=== PATIENT | female | born 1955 | race Hispanic/Latino ===

== ENCOUNTER 2017-04-29 16:07 | Inpatient (IN) | payer OTHER ==
[~2017-04-29] VITALS: Ht 137.2 cm; Wt 74.8 kg
[~2017-04-29 16:07] MED LIST: ALPRAZOLAM1 MG PO; ASPIRIN EC81 M1 PO; ATORVASTATIN CA40 MG PO; AUGMENTIN 875 M1 TAB PO; BENZTROPINE1 MG PO; CIPRO 500MG TA500 MG PO; CLONIDINE0.2 MG; DIVALPROEX SOD500 MG; IBUPROFEN600 MG PO; LISINOPRIL10 MG PO; LISINOPRIL20 MG PO; MEDROL DOSEPAK1 PAC PO; MEDROL4 M2 PO; MOTRIN800 MG PO; PROTONIX 40MG T40 MG PO; PYRIDIUM200 MG PO; SEROQUEL XR200 M1 PO; SINGULAIR10 MG PO; TESSALON PERLE100 M1 PO; VENLAFAXINE HY150 MG; VENTOLIN HFA18 GM INH; ZITHROMAX250 M2 PO; ZOFRAN4 M1 PO
[2017-04-29 16:39] LABS: ABSOLUTE BASOPHIL COUNT 0 /CUMM (0.0-0.2); ABSOLUTE EOSINOPHIL COUNT 0.1 /CUMM (0.0-0.7); ABSOLUTE GRANULOCYTE CT 22.9 /CUMM (1.4-6.5); ABSOLUTE LYMPH COUNT 0.7 /CUMM (1.2-3.4); ABSOLUTE MONOCYTE COUNT 0.9 /CUMM (0.10-0.60); BASOPHIL % 0 % (0.0-2.0); EOSINOPHIL % 0.6 % (0-5); GRANULOCYTE % 92.9 % (42.2-75.2); HEMATOCRIT 32.2 % (37-47); MEAN CORPUSCULAR HGB 30.5 PG (27.0-31.0); MEAN CORPUSCULAR HGB CONC 33.9 G/DL (33.0-37.0); MEAN CORPUSCULAR VOLUME 90.2 FL (81.0-99.0); MEAN PLATELET VOLUME 9.1 FL (7.4-10.4); PLATELET COUNT 189 /CUMM (130-400); RBC DISTRIBUTION WIDTH 13.3 % (11.5-14.5); RED BLOOD CELL CT 3.57 /CUMM (4.20-5.40); WHITE BLOOD CELL COUNT 24.6 /CUMM (4.8-10.8)
--- NOTE | 2017-04-29 16:43 | ED GI/GU/ABDOMINAL COMPLAINT ---
History of Present Illness General Chief Complaint: Female Urogenital Problems Stated Complaint: ?UTI, FEVER,PAIN WITH URINATION Source: patient Exam Limitations: no limitations Vital Signs & Intake/Output Vital Signs & Intake/Output Vital Signs Date Time Temp Pulse Resp B/P B/P Pulse O2 O2 Flow FiO2 Mean Ox Delivery Rate 04/29 2340 99.5 120 20 112/66 95 04/29 2237 99.8 112 18 130/80 96 04/29 2051 99.1 122 16 124/58 100 Room Air 04/29 1931 101.9 126 20 141/80 100 Room Air 04/29 1803 105 16 155/75 100 Room Air 04/29 1625 99.2 128 20 123/78 98 Room Air Room Air ED Intake and Output 04/30 0000 04/29 1200 Intake Total 2000 Output Total Balance 1999 Intake, IV 1999 Intake, Oral 0 Patient 160 lb Weight Allergies Coded Allergies: codeine (NIGHTMARES 05/10/15) oxycodone (VOMITING 05/10/15) Triage Note: PT TO ED WITH C/O HEADACHE, FEVER, FLANK AND LOW ABD PAIN, DECREASED APPETITE. PT EVAL BY DR ROBERTS IN TRIAGE, FLU SWAB, BLOODWORK SENT FROM TRIAGE. PT AMBLATORY TO BATHROOM FOR URINE SPECIMEN. Triage Nurses Notes Reviewed? yes ? n Is pt currently ? No Onset: Gradual Duration: day(s): Timing: recent history HPI: 62yo female with hx of HTN, UTIs presents to ED complaining of fever, chills, headache, bilateral flank pain x 5 days. Patient also reports urinary frequency and urgency, she states that she is using the bathroom every few minutes however only a small amount of urine comes out. This morning patient ate a sandwhich and had subsequent diarrhea x 3 episodes. Patient reports bilateral lower abdominal pain beginning this morning. The patient complains of intermittent dizziness. She denies nausea, vomiting, fevers, chills, skin rash, recent travel, change in diet. (Rica SANTIZO,Melany Booker) Reconcile Medications Albuterol Sulfate (Ventolin Hfa) 18 GM HFA.AER.AD 2 PUF INH Q4-6 PRN PRN SOB Aspirin (Ecotrin*) 81 MG TABLET. 1 TAB PO DAILY HEART HEALTH (Reported) Atorvastatin Calcium 20 MG TABLET 1 TAB PO DAILY CHOLESTEROL (Reported) Butalb/Acetaminophen/Caffeine (Whtdah-Cvpjlvns-Gnhe 50-300-40) 50 MG-300 MG-40 MG CAPSULE 1 TAB PO Q6H PRN VILLAREAL (Reported) Cholecalciferol (Vitamin D3) (Vitamin D) 2,000 UNIT TABLET 1 TAB PO DAILY SUPPLEMENT (Reported) Hydroxyzine HCl (hydrOXYzine HCl) 50 MG TABLET 0.5 TAB PO BID ANXIETY ( Reported) Lisinopril 10 MG TABLET 1 TAB PO DAILY BP (Reported) Metformin HCl 500 MG TABLET 1 TAB PO DAILY DM (Reported) Pantoprazole Sodium 40 MG TABLET.DR 1 TAB PO DAILY GI (Reported) Quetiapine Fumarate 100 MG TABLET 0.5-1 TAB PO QHS MENTAL HEALTH (Reported) Venlafaxine HCl (Venlafaxine HCl ER) 75 MG CAP.ER.24H 1 CAP PO DAILY MENTAL HEALTH (Reported) (Royce GASTON,Jaiden Tang) Past History Travel History Traveled to [place] past [place] No Medical History Any Pertinent Medical History? see below for history EENT: hearing loss Cardiovascular: hypertension, hyperlipidemia Respiratory: asthma Psychiatric: anxiety, depression Other Medical Hx: Urinary tract infections Surgical History Surgical History: SINUS SURGERY Psychosocial History What is your primary language Hungarian Tobacco Use: Never used ETOH Use: denies use Illicit Drug Use: denies illicit drug use Family History Hx Contributory? No (Melany Tellez) Review of Systems Review of Systems Constitutional: Reports: see HPI. EENTM: Reports: no symptoms. Respiratory: Reports: no symptoms. Cardiovascular: Reports: no symptoms. GI: Reports: see HPI. Genitourinary: Reports: see HPI. Musculoskeletal: Reports: no symptoms. Skin: Reports: no symptoms. Neurological/Psychological: Reports: see HPI. Hematologic/Endocrine: Reports: no symptoms. Immunologic/Allergic: Reports: no symptoms. All Other Systems: Reviewed and Negative (Melany Tellez) Physical Exam Physical Exam General Appearance: well developed/nourished, no apparent distress, alert, awake Head: atraumatic, normal appearance Eyes: Bilateral: normal appearance. Ears, Nose, Throat, Mouth: dry mucous membranes, hard of hearing, pharynx WNL Neck: normal inspection, supple, full range of motion Respiratory: normal breath sounds, no respiratory distress, lungs clear Cardiovascular: tachycardia Gastrointestinal: normal bowel sounds, soft, no organomegaly, RLQ, LLQ, suprapubic tenderness Back: CVA tenderness (R), CVA tenderness (L) Extremities: normal range of motion Neurologic/Psych: awake, alert, oriented x 3, stripper and taper II-XII nml as tested Skin: intact, normal color, warm/dry Core Measures ACS in differential dx? No Sepsis Present: No Sepsis Focused Exam Completed? No (Rica SANTIZO,Melany Booker) ED Sepsis Exam Date of Focused Sepsis Exam: 04/29/17 Time of Focused Sepsis Exam: 2100 Sepsis Cardiac Exam: Tachycardia Sepsis Resp Exam: CTA Sepsis Cap Refill Exam: <2 Sec Sepsis Peripheral Pulse Exam: Normal Sepsis Peripheral Pulse Location: Radial Sepsis Skin Color Exam: Normal for Ethnicity Skin Temp/Moisture Exam: Warm/Dry (Rica SANTIZO,Melany Booker) Progress Differential Diagnosis: kidney stone, UTI/pyelo Plan of Care: Orders Procedure Date/time Status Nothing by Mouth 04/30 B Active CBC WITHOUT DIFFERENTIAL 04/30 0600 Active BASIC ELECTROLYTES PLUS BUN&CR 04/30 0600 Active Vital Signs 04/30 0003 Active Teach/Educate 04/30 0003 Active Pain Treatment and Response 04/30 0003 Active Nutritional Intake, Monitor 04/30 0003 Active Isolation 04/30 0003 Active Intake & Output 04/30 0003 Active Patient Care Conference 04/30 0003 Active Activity/Ambulation 04/30 0003 Active Lab Add-on Test 04/30 UNK Active Lab Add-on Test 04/29 221 Active Pathway - chart 04/29 2206 Active House Staff 04/29 220 Active Patient Data 04/29 2148 Active Lab Add-on Test 04/29 2138 Active Add-on Test (ER Only) 04/29 2033 Active EKG 04/29 203 Active Saline Lock 04/29 2018 Active Misc Message 04/29 2018 Active ED Holding Orders 04/29 2018 Active Admit to inpatient 04/29 2018 Active Vital Signs 04/29 2019 Active Code Status 04/29 2019 Active Add-on Test (ER Only) 04/29 1726 Active Add-on Test (ER Only) 04/29 1725 Active BLOOD CULTURE 04/29 1725 Active CULTURE,URINE 04/29 1640 Active URINE OSMOLALITY 04/29 1640 Complete URINE LYTES, SPOT 04/29 1640 Complete PARTIAL THROMBOPLASTIN TIME 04/29 1631 Complete PROTHROMBIN TIME 04/29 1631 Complete MAGNESIUM 04/29 1631 Active LACTIC ACID 04/29 1631 Active GLYCOSYLATED HGB 04/29 1631 Active RAPID VIRAL INFLUENZA A 04/29 162 Complete COMPREHENSIVE METABOLIC PANEL 04/29 162 Active CBC WITHOUT DIFFERENTIAL 04/29 1624 Complete URINALYSIS 04/29 161 Complete VTE Mechanical Prophylaxis 04/29 UNK Active Intake & Output 04/29 UNK Active FingerStick- Glucose 04/29 UNK Active Current Medications Sig/Eric Start time Last Medication Dose Stop Time Status Admin Heparin Sodium 5,000 UNIT Q8 04/30 2200 AC (Porcine) Ceftriaxone Sodium 1,000 MG DAILY 04/30 1000 AC (Rocephin) Acetaminophen 650 MG Q6P PRN 04/29 221 AC (Tylenol) Acetaminophen 1,000 MG Q6P PRN 04/29 221 AC 04/29 (Ofirmev) 2351 Morphine Sulfate 2 MG Q4P PRN 04/29 2214 AC (Morphine) Pantoprazole Sodium 40 MG DAILY 04/29 2214 AC 04/29 (Protonix) 2336 Sodium Chloride 1,000 ML Q8H 04/29 2144 AC 04/29 (Normal Saline 0.9%) 04/30 1344 2148 Laboratory Tests 04/29/17 1640: Urinalysis LIGHT H, Urine Color YEL, Urine Clarity HAZY H, Urine pH 6.0, Ur Specific [place] 1.020, Urine Protein 100 H, Urine Ketones NEG, Urine Nitrite POS H, Urine Bilirubin NEG, Urine Urobilinogen 2.0 H, Ur Leukocyte Esterase LARGE H, Ur Microscopic SEDIMENT EXAMINED, Urine RBC 10-15 H, Urine WBC > 75 H, Ur Epithelial Cells FEW, Urine Bacteria MANY H, Urine Hemoglobin SMALL H, Urine Glucose NEG 04/29/17 1640: Urine Osmolality 414, Ur Random Creatinine 112.4, Ur Random Sodium 58, Ur Random Potassium 40.8, Fraction Sodium Excret 0.6 04/29/17 1631: Anion Gap 12, Estimated GFR 35 L, BUN/Creatinine Ratio 15.3, Glucose 231 H, Hemoglobin A1c Pending, Lactic Acid 1.4, Calcium 9.1, Magnesium 2.0, Total Bilirubin 0.8, AST 16, ALT 26, Alkaline Phosphatase 136 H, Total Protein 6.1 L , Albumin 3.1 L, Globulin 3.0, Albumin/Globulin Ratio 1.0 L, PT 12.8 H, INR 1.22 H, APTT 31, CBC w Diff MAN DIFF ORDERED, RBC 3.57 L, MCV 90.2, MCH 30.5, MCHC 33.9, RDW 13.3, MPV 9.1, Gran % 92.9 H, Lymphocytes % 2.7 L, Monocytes % 3.8, Eosinophils % 0.6, Basophils % 0, Absolute Granulocytes 22.9 H, Segmented Neutrophils 82 H, Band Neutrophils 9 H, Absolute Lymphocytes 0.7 L, Lymphocytes 4 L, Monocytes 2, Absolute Monocytes 0.9 H, Eosinophils 3, Absolute Eosinophils 0.1, Absolute Basophils 0, Platelet Estimate ADEQUATE, Normocytic RBCs VERIFIED, Normochromic RBCs VERIFIED Microbiology 04/29 1749 BLOOD: Blood Culture - RECD 04/29 1713 BLOOD: Blood Culture - RECD 04/29 1640 URINE ROUT: Urine Culture - RECD 04/29 1629 NASOPHARYN: Influenza Virus A & B Rapid Smear - COMP Patient has CVA tenderness with positive UTI, likely pyelonephritis. Patient also with acute kidney injury compared to prior labs. Will initiate ceftriaxone at this time with pending CT. Given patient's abdominal tenderness will obtain dry CT scan. CT scan shows hydronephrosis with 3 mm stone in bladder. Patient with elevated fever and persistent tachycardia meeting SIRS criteria. Dr. Crane present to see and evaluate the patient. Dr. Crane spoke with Dr. Sibley regarding this patient. He will take patient to our [facility] for local correction of urologic obstruction. I discussed this patient with hospitalist, Dr. Hyman, regarding her general medicine admission. Diagnostic Imaging: Viewed by Me: CT Scan. Discussed w/RAD: CT Scan. Radiology Impression: PATIENT: KALANI VEGAS PRESENT AGE: 62 PATIENT ACCOUNT NO: [id number] : 56 LOCATION: [facility] ORDERING PHYSICIAN: Melany SANTIZO SERVICE DATE: 04/29/17 EXAM TYPE: CAT - CT ABD & PELVIS W/O IV CONTRAS EXAMINATION: CT ABDOMEN AND PELVIS WITHOUT CONTRAST CLINICAL INFORMATION: R/O PYELONEPHRITIS, STONE, URINARY OBSTRUCTION Signs Symptoms: UTI, COMPARISON: CT abdomen pelvis 12/13/2013 TECHNIQUE: Multidetector volumetric imaging was performed from the superior aspect of the liver through the pubic symphysis. Sagittal and coronal reformatted images were obtained on the technologist's workstation. DLP: 358.92 mGy-cm FINDINGS: LUNG BASES: The visualized lung bases are unremarkable. LIVER, GALLBLADDER, AND BILIARY TREE: The liver is normal in size, shape, and attenuation. No focal hepatic lesion or biliary ductal dilatation is present. The gallbladder is unremarkable with no evidence of radiopaque gallstones, gallbladder wall thickening, or obvious pericholecystic inflammatory changes. PANCREAS: Unremarkable. SPLEEN: Unremarkable. ADRENAL GLANDS: Unremarkable. BLADDER/ KIDNEYS AND URETERS: There is moderate hydronephrosis of the left kidney. Dilatation of the left renal pelvis and calyces. There is hydroureter to the left ureterovesical junction. There is a 3 mm stone at the left bladder base adjacent to the trigone which is passing or has recently passed into the bladder. There is edema around the left kidney in the left kidney is larger than the right due to swelling. There is a nonobstructive 2 mm stone in the lower pole calyx of left kidney. No hydronephrosis of the right kidney. There are nonobstructive calculi in the right kidney. There are approximately 3 ,1 to 2 mm sized, stones in the lower pole to the midpole of the right kidney GASTROINTESTINAL TRACT: There is mild diverticulosis of left colon and sigmoid without diverticulitis. There is no acute abnormality of the bowel. No bowel obstruction. No bowel wall thickening or edema. The appendix is normal. The small bowel loops are unremarkable. ABDOMINAL WALL: Small fat-containing umbilical hernia. LYMPH NODES: Normal. VASCULAR: Scattered vascular wall calcification of aorta and iliac arteries. PELVIC VISCERA: The uterus is retroverted. There are multiple calcified fibroids. Largest posterior left measuring 2 cm. There is no adnexal abnormality. There is no fluid in the cul-de -sac. OSSEOUS STRUCTURES: Degenerative spondylosis of spine with multilevel endplate spurring of the vertebrae. Facet joint arthrosis at lower lumbar spine. IMPRESSION: Hydronephrosis of the left kidney with edema and swelling of the kidney. There is a 3 mm stone at the left bladder trigone which is passing or has passed into the bladder. There are in additional nonobstructive bilateral renal stones. DICTATED BY: Sherwin Oliver MD DATE/TIME DICTATED:04/29/171840 LUMBER DRIVER:CHARLIE DATE/TIME TRANSCRIBED:04/29/171840 CONFIDENTIAL, DO NOT COPY WITHOUT APPROPRIATE AUTHORIZATION. <Electronically signed in Other Vendor System> SIGNED BY: Sherwin Oliver MD 04/29/171850 Initial ED EKG: none (Rica SANTIZO,Melany Booker) Departure Departure Disposition: STILL A PATIENT Condition: Stable Clinical Impression Primary Impression: Sepsis Secondary Impressions: YOEL (acute kidney injury) Hydronephrosis Qualifiers: Hydronephrosis type: other Qualified Code: N13.39 - Other hydronephrosis Pyelonephritis Referrals: Lidya Maldonado APRN (PCP/Family) Departure Forms: Customer Survey General Discharge Information Admission Note Spoke With: Nader GASTON,[facility] Documentation of Exam: Documentation of any treatments & extenuating circumstances including Concerns Regarding Discharge (functional status, medication knowledge or non-compliance, living conditions, etc.) that warrant an admission rather than observation: [ Obstructing stone causing hydronephrosis and pyelonephritis, YOEL, meeting SIRS criteria requiring emergent urologic procedure, IV antibiotics, IV fluids, repeat labs, f/u blood cultures, premature discharge would be medically unsafe.] (Melany Tellez) PA/PLAYGROUND EQUIPMENT ERECTOR Co-Sign Statement Statement: ED Attending supervision documentation- [X] I saw and evaluated the patient. I have also reviewed all the pertinent lab results and diagnostic results. I agree with the findings and the plan of care as documented in the PA's/PLAYGROUND EQUIPMENT ERECTOR's documentation. 04/29/17, 19:45... pt with sepsis, infected stone w/ hydrdonephrosis... pt will need urological evaluation, iv abx, iv fluids. 04/29/17, 20:15... discussed with dr. sibley who will take patient to the OR [] I have reviewed the ED Record and agree with the PA's/PLAYGROUND EQUIPMENT ERECTOR's documentation. [] Additions or exceptions (if any) to the PAs/PLAYGROUND EQUIPMENT ERECTOR's note and plan are summarized below: [] (Royce GASTON,Jaiden Tang) Critical Care Note Critical Care Note Critical Care Time: 30-74 min (Melany Tellez)
--- NOTE | 2017-04-29 18:51 | CT SCAN REPORT ---
EXAMINATION: CT ABDOMEN AND PELVIS WITHOUT CONTRAST CLINICAL INFORMATION: R/O PYELONEPHRITIS, STONE, URINARY OBSTRUCTION Signs Symptoms: UTI, COMPARISON: CT abdomen pelvis 12/13/2013 TECHNIQUE: Multidetector volumetric imaging was performed from the superior aspect of the liver through the pubic symphysis. Sagittal and coronal reformatted images were obtained on the technologist's workstation. DLP: 358.92 mGy-cm FINDINGS: LUNG BASES: The visualized lung bases are unremarkable. LIVER, GALLBLADDER, AND BILIARY TREE: The liver is normal in size, shape, and attenuation. No focal hepatic lesion or biliary ductal dilatation is present. The gallbladder is unremarkable with no evidence of radiopaque gallstones, gallbladder wall thickening, or obvious pericholecystic inflammatory changes. PANCREAS: Unremarkable. SPLEEN: Unremarkable. ADRENAL GLANDS: Unremarkable. BLADDER/KIDNEYS AND URETERS: There is moderate hydronephrosis of the left kidney. Dilatation of the left renal pelvis and calyces. There is hydroureter to the left ureterovesical junction. There is a 3 mm stone at the left bladder base adjacent to the trigone which is passing or has recently passed into the bladder. There is edema around the left kidney in the left kidney is larger than the right due to swelling. There is a nonobstructive 2 mm stone in the lower pole calyx of left kidney. No hydronephrosis of the right kidney. There are nonobstructive calculi in the right kidney. There are approximately 3 ,1 to 2 mm sized, stones in the lower pole to the midpole of the right kidney GASTROINTESTINAL TRACT: There is mild diverticulosis of left colon and sigmoid without diverticulitis. There is no acute abnormality of the bowel. No bowel obstruction. No bowel wall thickening or edema. The appendix is normal. The small bowel loops are unremarkable. ABDOMINAL WALL: Small fat-containing umbilical hernia. LYMPH NODES: Normal. VASCULAR: Scattered vascular wall calcification of aorta and iliac arteries. PELVIC VISCERA: The uterus is retroverted. There are multiple calcified fibroids. Largest posterior left measuring 2 cm. There is no adnexal abnormality. There is no fluid in the cul-de-sac. OSSEOUS STRUCTURES: Degenerative spondylosis of spine with multilevel endplate spurring of the vertebrae. Facet joint arthrosis at lower lumbar spine. IMPRESSION: Hydronephrosis of the left kidney with edema and swelling of the kidney. There is a 3 mm stone at the left bladder trigone which is passing or has passed into the bladder. There are in additional nonobstructive bilateral renal stones.
--- NOTE | 2017-04-29 20:31 | History & Physical ---
Ambar Nina MD,[facility] 04/29/172030: General Information and HPI MD Statement: I have seen and personally examined KALANI VEGAS and documented this H&P. The patient is a 62 year old F who presented with a patient stated chief complaint of [fever and abdominal pain]. Source of Information: patient, family Exam Limitations: Macanese speaking, limited slovak proficency History of Present Illness: Patient is 62-year-old female with PMH of HTN, HLP, asthma, anxiety, depression, ?use of CPAP at nights presented to ED with chief complaint of fever and pain with urination. Patient is Macanese-speaking, had limited Italian proficiency but family were present at the bedside and were contributing in history taking. Briefly patient was in usual state of health till Tuesday this week, that she started to have abdominal/flank pain, frequency. She also reported loose stools. She also had fever and chills. With detoriation of symptoms patient came to ED for evaluation. She was trying to maintain drinking fluids, but could not eat due to nausea and vomiting. She denied history of kidney stones or frequent UTIs. Patient reported smoking 1PPD but denied alcohol intake. Allergies/Medications Allergies: Coded Allergies: codeine (NIGHTMARES 05/10/15) oxycodone (VOMITING 05/10/15) Home Med list Albuterol Sulfate (Ventolin Hfa) 18 GM HFA.AER.AD 2 PUF INH Q4-6 PRN PRN SOB Aspirin (Ecotrin*) 81 MG TABLET.DR 1 TAB PO DAILY HEART HEALTH (Reported) Atorvastatin Calcium 20 MG TABLET 1 TAB PO DAILY CHOLESTEROL (Reported) Butalb/Acetaminophen/Caffeine (Ihfclm-Lzueeweh-Ffjh 50-300-40) 50 MG-300 MG-40 MG CAPSULE 1 TAB PO Q6H PRN VILLAREAL (Reported) Cholecalciferol (Vitamin D3) (Vitamin D) 2,000 UNIT TABLET 1 TAB PO DAILY SUPPLEMENT (Reported) Hydroxyzine HCl (hydrOXYzine HCl) 50 MG TABLET 0.5 TAB PO BID ANXIETY ( Reported) Lisinopril 10 MG TABLET 1 TAB PO DAILY BP (Reported) Metformin HCl 500 MG TABLET 1 TAB PO DAILY DM (Reported) Pantoprazole Sodium 40 MG TABLET.DR 1 TAB PO DAILY GI (Reported) Quetiapine Fumarate 100 MG TABLET 0.5-1 TAB PO QHS MENTAL HEALTH (Reported) Venlafaxine HCl (Venlafaxine HCl ER) 75 MG CAP.ER.24H 1 CAP PO DAILY MENTAL HEALTH (Reported) Past History Travel History Traveled to [place] past [place] No Medical History EENT: hearing loss Cardiovascular: hypertension, hyperlipidemia Respiratory: asthma Psychiatric: anxiety, depression Other Medical Hx: Urinary tract infections Surgical History Surgical History: SINUS SURGERY Past Family/Social History Psychosocial History ETOH Use: denies use Illicit Drug Use: denies illicit drug use Review of Systems Review of Systems Constitutional: Reports: see HPI. Exam & Diagnostic Data Last 24 Hrs of Vital Signs/I&O Vital Signs Date Time Temp Pulse Resp B/P B/P Pulse O2 O2 Flow FiO2 Mean Ox Delivery Rate 04/29 2236 99.8 112 18 130/80 96 04/29 2050 99.1 122 16 124/58 100 Room Air 04/29 1931 101.9 126 20 141/80 100 Room Air 04/29 1803 105 16 155/75 100 Room Air 04/29 1625 99.2 128 20 123/78 98 Room Air Room Air Physical Exam General Appearance Alert, Oriented X3, Cooperative, No Acute Distress, anxious Skin No Significant Lesion Skin Temp/Moisture Exam: Hot/Diaphoretic HEENT Atraumatic, EOMI, Mucous Membr. moist/pink Cardiovascular Regular Rate, Normal S1, Normal S2 Lungs Normal Air Movement Abdomen suprapubic tenderness, left CVA tenderness Neurological Normal Speech, Strength at 5/5 X4 Ext, Cranial Nerves 3-12 NL Extremities No Edema Last 24 Hrs of Labs/Vladislav: Laboratory Tests 04/29/17 1640: Urinalysis LIGHT H, Urine Color YEL, Urine Clarity HAZY H, Urine pH 6.0, Ur Specific [place] 1.020, Urine Protein 100 H, Urine Ketones NEG, Urine Nitrite POS H, Urine Bilirubin NEG, Urine Urobilinogen 2.0 H, Ur Leukocyte Esterase LARGE H, Ur Microscopic SEDIMENT EXAMINED, Urine RBC 10-15 H, Urine WBC > 75 H, Ur Epithelial Cells FEW, Urine Bacteria MANY H, Urine Hemoglobin SMALL H, Urine Glucose NEG 04/29/17 1631: Anion Gap 12, Estimated GFR 35 L, BUN/Creatinine Ratio 15.3, Glucose 231 H, Hemoglobin A1c Pending, Lactic Acid 1.4, Calcium 9.1, Magnesium 2.0, Total Bilirubin 0.8, AST 16, ALT 26, Alkaline Phosphatase 136 H, Total Protein 6.1 L , Albumin 3.1 L, Globulin 3.0, Albumin/Globulin Ratio 1.0 L, PT 12.8 H, INR 1.22 H, APTT 31, CBC w Diff MAN DIFF ORDERED, RBC 3.57 L, MCV 90.2, MCH 30.5, MCHC 33.9, RDW 13.3, MPV 9.1, Gran % 92.9 H, Lymphocytes % 2.7 L, Monocytes % 3.8, Eosinophils % 0.6, Basophils % 0, Absolute Granulocytes 22.9 H, Segmented Neutrophils 82 H, Band Neutrophils 9 H, Absolute Lymphocytes 0.7 L, Lymphocytes 4 L, Monocytes 2, Absolute Monocytes 0.9 H, Eosinophils 3, Absolute Eosinophils 0.1, Absolute Basophils 0, Platelet Estimate ADEQUATE, Normocytic RBCs VERIFIED, Normochromic RBCs VERIFIED Microbiology 04/29 1749 BLOOD: Blood Culture - RECD 04/29 1713 BLOOD: Blood Culture - RECD 04/29 1640 URINE ROUT: Urine Culture - RECD 04/29 1629 NASOPHARYN: Influenza Virus A & B Rapid Smear - COMP Assessment/Plan Assessment: 62-year-old female presented with fever, frequency, dysuria and flank tenderness PMH of HTN, HLP, asthma, anxiety, depression, ?use of CPAP VS, Ph Ex at admission: MAXIMUM TEMPERATURE 101.9, BP 155/75, OR 105, RR 16 Labs at admission: WBC 24.6, Hgb 10.9, band 9, potassium 3.3, CR 1.5, BUN over creatinine 15.3 UA, Nit positive, WBC 75, LE positive Imagings at admission: CT scan of the abdomen: Hydronephrosis of the left kidney with edema and swelling of the kidney. There is a 3 mm stone at the left bladder trigone which is passing or has passed into the bladder. There are in additional nonobstructive bilateral renal stones. Patient was admitted to GM floor for management of following conditions: Sepsis UTI, perinephritis, hydronephrosis Patient meets sepsis criteria. UA is active and imaging suggesting obstructive nephropathy. Dr. Sibley was consulted who recommended no emergent intervention considering patient being stable. We will admit patient to general medicine floor, start antibiotics, and keep nothing by mouth for possible urology intervention tomorrow morning. -Admit to general medicine floor -Vital signs -Hold blood pressure medication -IV fluids - Start IV ceftriaxone -IV Zofran for vomiting -Keep nothing by mouth -Urology consulted, possible stent placement procedure tomorrow morning YOEL Most likely obstructive uropathy, BUN creatinine ratio was borderline, we will add urine lites, we will hold lisinopril - urine lytes - consider hold fluids if pattern suggestive of obstructive Hypokalemia - replete IV - may not tolerate PO, administered Chronic medical problems: ?CPAP, Asthma, HTN, smoking - continue CPAP - nicotin patch - hold BP meds, will follow - consider start asprin tomrrow after prcedure NPO midnight DVT ppx: ALPS FC As Ranked By This Provider Problem List: 1. YOEL (acute kidney injury) 2. Sepsis 3. Pyelonephritis 4. Hydronephrosis Qualifiers Hydronephrosis type: other Qualified Code: N13.39 - Other hydronephrosis Core Measures/Misc (11/21) Acute Coronary Syndrome ACS Diagnosis: No Congestive Heart Failure Congestive Heart Failure Diagnosis No Cerebrovascular Accident CVA/TIA Diagnosis: No VTE (View Protocol) VTE Risk Factors Age>40 No Mechanical VTE Prophylaxis d/t N/A MechProphylax Ordered No VTE Pharm Prophylaxis d/t Medical Contraindication (plan for surgery) Sepsis (View protocol) Sepsis Present: Yes Nader GASTON, [facility] 04/29/172117: Attending MD Review Statement Attending Statement Attending MD Statement: examined this patient, discuss w/resident/PA/BRAKE SPECIALIST, agreed w/resident/PA/BRAKE SPECIALIST, discussed with family, reviewed images, amended to note Attending Assessment/Plan: 62 yo Macanese speaking F smoker with h/o HTN, HLD, anxiety, is here with 5-day h /o fever, chills, bilateral flank pain (L>R), nausea and urinary frequency and urgency. Reportedly uses the bathroom frequently but only small amount of urine comes out. She also reports 2-3 episodes of diarrhea today. c/o headache and dizziness+. Denies h/o nephrolithiasis or urologic procedure or recurrent UTI's. Vitals: Tmax 101.9, HR 100-120's, BP 112/66, sats 95% RA. Exam: AAO, in mild distress due to pain, very dry mucous membranes, Neck supple, Bilateral CVA tenderness, Chest b/l clear, Heart S1S2 regular, tachycardic, Abd soft, b/l flank tenderness, BS+, LE: no edema. Labs: WBC 24.6, H/H 10.9/32.2, bands 9, INR 1.22, bicarb 20, BUN 23, creat 1.5 ( baseline 0.8), glucose 231, lactic acid 1.4, Alk phos 136. UA hazy, proteinuria, positive nitrite, large leukocyte esterase, RBC 10-15, WBC >75, many bacteria. CT abd/pelvis: hydronephrosis of left kidney with edema and swelling of kidney. 3 mm stone at left bladder trigone and additional nonobstructive b/l renal stones. EKG: sinus tachycardia. Assessment and plan: 1. Sepsis likely gram negative 2. UTI with acute pyelonephritis 3. Obstructive uropathy with left sided hydronephrosis 4. YOEL, hypokalemia 5. Essential hypertension 6. ?history of diabetes - Admit to general medicine - Panculture - Based on previous Ecoli UTI, cover with IV ceftriaxone - IV fluids NS @ 125/hr - Urology consult (Dr. Sibley) - NPO - Plan for OR in AM for stent placement - Pain management with IV morphine and tylenol - Avoid NSAIDs - Supportive care with anti-emetics. - Hold lisinopril until renal functions improve - Hold aspirin, can resume post procedure - Replete electrolytes - Smoking cessation counseling, PRN nicotine patch - Check HbA1c DVT ppx Hep SC. Full code. Plan was discussed with patient and family at bedside. Update: Micro informed patient's blood culture - 1st set anaerobic bottle is growing GNR. Grzegorz GASTON,Silvino 04/29/17 2214: Resident Review Statement Resident Statement: examined this patient, discussed with property management intern, agreed with property management intern, discussed with family, reviewed EMR data (avail), discussed with nursing , discussed with case mgmt, reviewed images, amended to note Other Findings: 62-year-old female with past medical history of hypertension, hyperlipidemia, asthma, anxiety, depression, presented with history of abdominal/back pain, fever/chills, nausea/vomiting, since 5 days. This was associated with urinary frequency and urgency, and a decreased urine output. She also admitted to having loose bowel movement 3 times today. Patient didn't know about past history of urinary tract stones and also denied any urologic procedures. Patient's vital parameters were suggestive of sepsis, and ... Patient is currently admitted in general medical floor for the management of following issues: #Sepsis of urologic origin The patient's clinical picture, including UA, imaging showing urinary tract obstruction due to stone (obstructive uropathy), is typical for sepsis of urologic origin, which would require relief of obstruction, most likely with the surgery. Urology service was consulted by the emergency department, who assessed the patient and suggested us to keep her nothing by mouth while watching her clinical condition very closely. If her condition seems to due to oriented, that is, blood pressure lowering, fever rising, she could be operated tonight as well, else she could be more stabilized as she looks right now, received more IV fluid, IV antibiotic and get the surgery at 8 AM tomorrow. I discussed the case with urologist Jorge Sibley MD who suggested me as above. We will be in close contact with the urologist while monitoring her very closely. IV fluids, IV ceftriaxone pending cultures, nothing by mouth for now. #Although patient denied any history of diabetes, she was prescribed metformin in the past, we will check her blood sugars and HbA1c, and will add insulin if necessary. Will continue to avoid nephrotoxic drugs, and hold lisinopril until renal functions improve. Holding BP meds till BP improves. Diet: Nothing by mouth for now DVT prophylaxis with subcutaneous heparin Full code. Diet: Nothing by mouth for now DVT prophylaxis with subcutaneous heparin Full code.
[2017-04-29] MEDS ORDERED: ATORVASTATIN CA20 M1 PO (20:32)
[2017-04-29] MEDS ORDERED: HYDROXYZINE HCL50 M2 PO (20:34)
[2017-04-29] MEDS ORDERED: BUTALB-ACETAMI1 EAC1 PO (20:34)
[2017-04-29] MEDS ORDERED: QUETIAPINE FUM100 M1 PO (20:35)
[2017-04-29] MEDS ORDERED: VENLAFAXINE HCL75 M1 PO (20:35)
[2017-04-29] MEDS ORDERED: LISINOPRIL10 M1 PO (20:36)
[2017-04-29] MEDS ORDERED: METFORMIN HCL500 M3 PO (20:36)
[2017-04-29] MEDS ORDERED: PANTOPRAZOLE SO40 M1 PO (20:36)
[2017-04-29] MEDS ORDERED: VITAMIN D2000 UNI1 PO (20:36)
--- NOTE | 2017-04-29 20:40 | Admission Certification ---
Admission Certification Certification Statement - As attending physician, I certify that at the time of - admission, based on clinical presentation, severity of - symptoms, need for further diagnostic testing and - therapeutic interventions, and risk of adverse outcomes - without in-hospital treatment, in my clinical assessment, - this patient requires an acute hospital stay for a minimum - of two nights or longer. I have also considered psychsocial - factors such as support system, advanced age, financial - issues, cognitive issues, and failed out-patient treatments, - past re-admission history, safety of patient, and lack of - compliance as applicable. Specific rationale supporting this admission is: Gram negative sepsis, acute pyelonephritis, obstructive uropathy, YOEL with metabolic acidosis.
[2017-04-29 21:00] LABS: PT 12.8 SEC (9.4-12.5); PTT 31 SEC (25-37)
[2017-04-29 23:40] VITALS: BP 112/66
--- NOTE | 2017-04-30 03:41 | Cons- Urology ---
General Information and HPI Consulting Request Date of Consult: 04/29/17 Requested By: Nader GASTON,Alvarado Reason for Consult: left hydro. with sepsis (elevated wbc) and pain Source of Information: patient Exam Limitations: no limitations History of Present Illness: Seen at bedside sleeping peacfully. Only complaint at this time is left IV irriation. Denies fever/chills/diaphoresis. Patient was in usual state of health till Tuesday this week, that she started to have abdominal/flank pain, frequency. She also reported loose stools. She also had fever and chills. With detoriation of symptoms patient came to ED for evaluation. She was trying to maintain drinking fluids, but could not eat due to nausea and vomiting. She denied history of kidney stones or frequent UTIs. Patient reported smoking 1PPD but denied alcohol intake. Informed pt of left hydronephrosis with sepsis with bilat. stones. I also told her that a small stone seems to have passed into the bladder and the hydronephrosis is a residual effect that should get better. I aslo told pt. of possibility of OR stent if she does not improve overnight. Allergies/Medications Allergies: Coded Allergies: codeine (NIGHTMARES 05/10/15) oxycodone (VOMITING 05/10/15) Home Med List: Albuterol Sulfate (Ventolin Hfa) 18 GM HFA.AER.AD 2 PUF INH Q4-6 PRN PRN SOB Aspirin (Ecotrin*) 81 MG TABLET.DR 1 TAB PO DAILY HEART HEALTH (Reported) Atorvastatin Calcium 20 MG TABLET 1 TAB PO DAILY CHOLESTEROL (Reported) Butalb/Acetaminophen/Caffeine (Rzjpyl-Atuispma-Tgzz 50-300-40) 50 MG-300 MG-40 MG CAPSULE 1 TAB PO Q6H PRN VILLAREAL (Reported) Cholecalciferol (Vitamin D3) (Vitamin D) 2,000 UNIT TABLET 1 TAB PO DAILY SUPPLEMENT (Reported) Hydroxyzine HCl (hydrOXYzine HCl) 50 MG TABLET 0.5 TAB PO BID ANXIETY ( Reported) Lisinopril 10 MG TABLET 1 TAB PO DAILY BP (Reported) Metformin HCl 500 MG TABLET 1 TAB PO DAILY DM (Reported) Pantoprazole Sodium 40 MG TABLET.DR 1 TAB PO DAILY GI (Reported) Quetiapine Fumarate 100 MG TABLET 0.5-1 TAB PO QHS MENTAL HEALTH (Reported) Venlafaxine HCl (Venlafaxine HCl ER) 75 MG CAP.ER.24H 1 CAP PO DAILY MENTAL HEALTH (Reported) Current Medications: Current Medications Sig/Eric Start time Last Medication Dose Route Stop Time Status Admin Acetaminophen 650 MG Q6P PRN 04/29 221 AC PO Acetaminophen 1,000 MG Q6P PRN 04/29 2215 AC 04/29 IV 2351 Acetaminophen 1,000 MG ONCE ONE 04/29 1944 DC 04/29 N/A 1 UNIT IV 04/29 Acetaminophen 0 .STK-MED ONE 04/29 194 DC IV Ceftriaxone Sodium 1,000 MG DAILY 04/30 1000 AC IV Ceftriaxone Sodium 0 .STK-MED ONE 04/29 181 DC .ROUTE Ceftriaxone Sodium 1,000 MG ONCE ONE 04/29 174 DC 04/29 IV 04/29 174 181 Heparin Sodium 5,000 UNIT Q8 04/30 220 AC (Porcine) SC Ketorolac 0 .STK-MED ONE 04/29 1809 DC Tromethamine .ROUTE Ketorolac 30 MG ONCE ONE 04/29 173 DC 04/29 Tromethamine IV 04/29 173 181 Morphine Sulfate 2 MG Q4P PRN 04/29 2214 AC IV Morphine Sulfate 4 MG ONCE ONE 04/29 1944 DC 04/29 IV 04/29 Morphine Sulfate 0 .STK-MED ONE 04/29 1942 DC .ROUTE Ondansetron HCl 0 .STK-MED ONE 04/29 1946 DC .ROUTE Ondansetron HCl 4 MG ONCE ONE 04/29 1944 DC 04/29 IV 04/29 Pantoprazole Sodium 40 MG DAILY 04/29 2214 AC 04/29 IV 2336 Potassium Chloride 10 MEQ Q1H 04/29 2330 DC 04/30 IV 04/30 0031 0241 Potassium Chloride 40 MEQ ONCE ONE 04/29 2214 DC 04/29 PO 04/29 2216 2336 Sodium Chloride 1,000 ML Q8H 04/29 2145 AC 04/29 IV 04/30 1344 2148 Sodium Chloride 1,000 ML BOLUS ONE 04/29 1999 DC 04/29 IV 04/29 2058 195 Sodium Chloride 1,000 ML BOLUS ONE 04/29 171 DC 04/29 IV 04/29 181 173 Past History Medical History Blood Transfusion Hx: No EENT: hearing loss Cardiovascular: hypertension, hyperlipidemia Respiratory: asthma Psychiatric: anxiety, depression Other Medical Hx: Urinary tract infections Surgical History Pertinent Surgical History: SINUS SURGERY Psychosocial History Where Do You Live? Home Services at Home: None Smoking Status: Current Everyday Smoker ETOH Use: denies use Illicit Drug Use: denies illicit drug use Employment History Retired? unknown Review of Systems Review of Systems Constitutional: Reports: malaise, weakness. EENTM: Denies: no symptoms. Cardiovascular: Denies: no symptoms. Respiratory: Denies: no symptoms. GI: Reports: abdominal pain, bloating. Genitourinary: Reports: frequency. Musculoskeletal: Denies: no symptoms. Skin: Denies: no symptoms. Exam & Diagnostic Data Vital Signs and I&O Vital Signs Date Time Temp Pulse Resp B/P B/P Pulse O2 O2 Flow FiO2 Mean Ox Delivery Rate 04/29 2340 99.5 120 20 112/66 95 04/29 2237 99.8 112 18 130/80 96 04/29 2051 99.1 122 16 124/58 100 Room Air 04/29 1931 101.9 126 20 141/80 100 Room Air 04/29 1803 105 16 155/75 100 Room Air 04/29 1625 99.2 128 20 123/78 98 Room Air Room Air Intake & Output 04/30 0804/30 0000 04/29 1600 04/29 0804/29 0000 04/28 1600 Intake Total 2000 Output Total Balance 2000 Intake, IV 2000 Intake, Oral 0 Patient 165 lb Weight Weight Reported by Patient Measurement Method Physical Exam General Appearance: well developed/nourished, no apparent distress Head: atraumatic Eyes: Bilateral: normal appearance. Neck: normal inspection Respiratory: normal breath sounds Cardiovascular: regular rate/rhythm Gastrointestinal: normal bowel sounds, soft, non-tender Back: CVA tenderness (L) Extremities: normal inspection Neurologic/Psych: no motor/sensory deficits, awake, alert, oriented x 3 Skin: intact, normal color, warm/dry Last 24 Hours of Labs: Laboratory Tests 04/29 04/29 1640 1640 Urines Urinalysis LIGHT H Urine Color (YEL,AMB,STR) YEL Urine Clarity (CLEAR) HAZY H Urine pH (5.0 - 8.0) 6.0 Ur Specific [place] (1.001 - 1.035) 1.020 Urine Protein (NEG,<30 MG/DL) 100 H Urine Ketones (NEG) NEG Urine Nitrite (NEG) POS H Urine Bilirubin (NEG) NEG Urine Urobilinogen (0.1 - 1.0 EU/dl) 2.0 H Ur Leukocyte Esterase (NEG) LARGE H Ur Microscopic SEDIMENT EXAMINED Urine RBC (0 - 5 /HPF) 10-15 H Urine WBC (0 - 2 /HPF) > 75 H Ur Epithelial Cells (NONE,FEW) FEW Urine Bacteria (NEG/NONE) MANY H Urine Hemoglobin (NEG) SMALL H Urine Osmolality (300 - 1000 MOSM/KG) 414 Ur Random Creatinine (mg/dL) 112.4 Ur Random Sodium (30 - 90 mmol/L) 58 Ur Random Potassium (mmol/L) 40.8 Fraction Sodium Excret (<1% %) 0.6 Urine Glucose (N MG/DL) NEG 04/29 1631 Chemistry Sodium (137 - 145 mmol/L) 140 Potassium (3.5 - 5.1 mmol/L) 3.3 L Chloride (98 - 107 mmol/L) 108 H Carbon Dioxide (22 - 30 mmol/L) 20 L Anion Gap (5 - 16) 12 BUN (7 - 17 mg/dL) 23 H Creatinine (0.5 - 1.0 mg/dL) 1.5 H Estimated GFR (>60 ml/min) 35 L BUN/Creatinine Ratio (7 - 25 %) 15.3 Glucose (65 - 99 mg/dL) 231 H Hemoglobin A1c (4.2 - 5.8 %) Pending Lactic Acid (0.7 - 2.1 mmol/L) 1.4 Calcium (8.4 - 10.2 mg/dL) 9.1 Magnesium (1.6 - 2.3 mg/dL) 2.0 Total Bilirubin (0.2 - 1.3 mg/dL) 0.8 AST (14 - 36 U/L) 16 ALT (9 - 52 U/L) 26 Alkaline Phosphatase (<127 U/L) 136 H Total Protein (6.3 - 8.2 g/dL) 6.1 L Albumin (3.5 - 5.0 g/dL) 3.1 L Globulin (1.9 - 4.2 gm/dL) 3.0 Albumin/Globulin Ratio (1.1 - 2.2 %) 1.0 L Coagulation PT (9.4 - 12.5 SEC) 12.8 H INR (0.90 - 1.19) 1.22 H APTT (25 - 37 SEC) 31 Hematology CBC w Diff MAN DIFF ORDERED WBC (4.8 - 10.8 /CUMM) 24.6 H RBC (4.20 - 5.40 /CUMM) 3.57 L Hgb (12.0 - 16.0 G/DL) 10.9 L Hct (37 - 47 %) 32.2 L MCV (81.0 - 99.0 FL) 90.2 MCH (27.0 - 31.0 PG) 30.5 MCHC (33.0 - 37.0 G/DL) 33.9 RDW (11.5 - 14.5 %) 13.3 Plt Count (130 - 400 /CUMM) 189 MPV (7.4 - 10.4 FL) 9.1 Gran % (42.2 - 75.2 %) 92.9 H Lymphocytes % (20.5 - 51.1 %) 2.7 L Monocytes % (1.7 - 9.3 %) 3.8 Eosinophils % (0 - 5 %) 0.6 Basophils % (0.0 - 2.0 %) 0 Absolute Granulocytes (1.4 - 6.5 /CUMM) 22.9 H Segmented Neutrophils (42.2 - 75.2 %) 82 H Band Neutrophils (0.0 - 5.0 %) 9 H Absolute Lymphocytes (1.2 - 3.4 /CUMM) 0.7 L Lymphocytes (20.5 - 51.1 %) 4 L Monocytes (1.7 - 9.3 %) 2 Absolute Monocytes (0.10 - 0.60 /CUMM) 0.9 H Eosinophils (0 - 5.0 %) 3 Absolute Eosinophils (0.0 - 0.7 /CUMM) 0.1 Absolute Basophils (0.0 - 0.2 /CUMM) 0 Platelet Estimate (ADEQUATE) ADEQUATE Normocytic RBCs VERIFIED Normochromic RBCs VERIFIED Imaging Results: PATIENT: KALANI VEGAS PRESENT AGE: 62 PATIENT ACCOUNT NO: [id number] : 56 LOCATION: [facility] ORDERING PHYSICIAN: Melany SANTIZO SERVICE DATE: 04/29/17 EXAM TYPE: CAT - CT ABD & PELVIS W/O IV CONTRAS EXAMINATION: CT ABDOMEN AND PELVIS WITHOUT CONTRAST CLINICAL INFORMATION: R/O PYELONEPHRITIS, STONE, URINARY OBSTRUCTION Signs Symptoms: UTI, COMPARISON: CT abdomen pelvis 12/13/2013 TECHNIQUE: Multidetector volumetric imaging was performed from the superior aspect of the liver through the pubic symphysis. Sagittal and coronal reformatted images were obtained on the technologist's workstation. DLP: 358.92 mGy-cm FINDINGS: LUNG BASES: The visualized lung bases are unremarkable. LIVER, GALLBLADDER, AND BILIARY TREE: The liver is normal in size, shape, and attenuation. No focal hepatic lesion or biliary ductal dilatation is present. The gallbladder is unremarkable with no evidence of radiopaque gallstones, gallbladder wall thickening, or obvious pericholecystic inflammatory changes. PANCREAS: Unremarkable. SPLEEN: Unremarkable. ADRENAL GLANDS: Unremarkable. BLADDER/KIDNEYS AND URETERS: There is moderate hydronephrosis of the left kidney. Dilatation of the left renal pelvis and calyces. There is hydroureter to the left ureterovesical junction. There is a 3 mm stone at the left bladder base adjacent to the trigone which is passing or has recently passed into the bladder. There is edema around the left kidney in the left kidney is larger than the right due to swelling. There is a nonobstructive 2 mm stone in the lower pole calyx of left kidney. No hydronephrosis of the right kidney. There are nonobstructive calculi in the right kidney. There are approximately 3 ,1 to 2 mm sized, stones in the lower pole to the midpole of the right kidney GASTROINTESTINAL TRACT: There is mild diverticulosis of left colon and sigmoid without diverticulitis. There is no acute abnormality of the bowel. No bowel obstruction. No bowel wall thickening or edema. The appendix is normal. The small bowel loops are unremarkable. ABDOMINAL WALL: Small fat-containing umbilical hernia. LYMPH NODES: Normal. VASCULAR: Scattered vascular wall calcification of aorta and iliac arteries. PELVIC VISCERA: The uterus is retroverted. There are multiple calcified fibroids. Largest posterior left measuring 2 cm. There is no adnexal abnormality. There is no fluid in the cul-de-sac. OSSEOUS STRUCTURES: Degenerative spondylosis of spine with multilevel endplate spurring of the vertebrae. Facet joint arthrosis at lower lumbar spine. IMPRESSION: Hydronephrosis of the left kidney with edema and swelling of the kidney. There is a 3 mm stone at the left bladder trigone which is passing or has passed into the bladder. There are in additional nonobstructive bilateral renal stones. Assessment/Plan Assessment/Plan pt with left residual hydro. due to small stone: appears to have passed into bladder already: Temperature elevation-currently at 99.1F, without diaphoresis/ rigors, elevated wbc: will need optimization with electrolytes, ivf, and antibiotics: if no improvement, pt will then be for left stent. Keep NPO for now in case she is clinically worse and needs to go to OR urgently. Copies To: Jorge Sibley MD Consult Acknowledgment - Thank you for your consult request. Attending MD Review Statement Attending Statement Attending MD Statement: examined this patient, discuss w/resident/PA/FISHING ROD TRIMMER Attending Assessment/Plan: must give ivf/iv antibiotics, optimize electrolytes for stent within 24 hours.
[2017-04-30 06:24] VITALS: BP 114/66
[2017-04-30 08:21] VITALS: BP 102/60
[2017-04-30 09:32] LABS: ABSOLUTE BASOPHIL COUNT 0 /CUMM (0.0-0.2); ABSOLUTE EOSINOPHIL COUNT 0.1 /CUMM (0.0-0.7); ABSOLUTE LYMPH COUNT 1.4 /CUMM (1.2-3.4); ABSOLUTE MONOCYTE COUNT 1.6 /CUMM (0.10-0.60); BASOPHIL % 0 % (0.0-2.0); EOSINOPHIL % 0.5 % (0-5); GRANULOCYTE % 86.9 % (42.2-75.2); HEMATOCRIT 29.2 % (37-47); MEAN CORPUSCULAR HGB 30.4 PG (27.0-31.0); MEAN CORPUSCULAR VOLUME 89.5 FL (81.0-99.0); MEAN PLATELET VOLUME 10.4 FL (7.4-10.4); PLATELET COUNT 176 /CUMM (130-400); RBC DISTRIBUTION WIDTH 13.8 % (11.5-14.5); RED BLOOD CELL CT 3.26 /CUMM (4.20-5.40); WHITE BLOOD CELL COUNT 24.2 /CUMM (4.8-10.8)
[2017-04-30 11:10] VITALS: BP 104/64
--- NOTE | 2017-04-30 11:17 | RADIOLOGY REPORT ---
EXAMINATION: XR ABDOMEN CLINICAL INDICATION: Left hydronephrosis with UVJ or bladder stone. COMPARISON: None TECHNIQUE: Several images of abdomen were obtained in OR following left retrograde pyelogram. FINDINGS: There are several images obtained in the OR during left retrograde pyelogram revealing contrast opacifying the entire left ureter with a left ureteral stent or sheath in place on the last image. No intraluminal filling defects seen in the left ureter following contrast opacification. IMPRESSION: No filling defect or narrowing seen in the left ureter. A left ureteral stent or sheath is noted on the very last image.
[2017-04-30 15:04] VITALS: BP 102/66
--- NOTE | 2017-04-30 17:36 | PN- Gen Med ---
Assessment/Plan Medical Problem List: 1. UTI (urinary tract infection) 2. Urinary frequency 3. Hydronephrosis Qualifiers Hydronephrosis type: other Qualified Code: N13.39 - Other hydronephrosis 4. Renal calculi Plan: 1. Gram negative sepsis from UTI and renal calculi with significant leukocytosis 2. S/P Cysto and renal stent to left ureter - POD#0 2. Obstructive uropathy with mild hydro 4. YOEL - Resolving 5. Essential hypertension 6. ?history of diabetes 7. Nonspecific headaches possibly related to poor by mouth intake in the preceding days - patient refuses Tylenol continue to monitor Plan - Clear liquid diet - Resume aspirin - Replete electrolytes - Continue with IV ceftriaxone pending final cultures - Switche IV pain medications to by mouth tomorrow - Smoking cessation counseling, PRN nicotine patch - Check HbA1c - Appreciate urology recommendations. DVT ppx Hep SC. Full code. Subjective Subjective: No specific complaints except for headache which is been persisting for the past few days. No specific triggers. Possible related to morphine administration. Review of Systems Constitutional: Reports: see HPI. Objective Last 24 Hrs of Vital Signs/I&O Vital Signs Date Time Temp Pulse Resp B/P B/P Pulse O2 O2 Flow FiO2 Mean Ox Delivery Rate 04/30 1504 98.0 103 18 102/66 95 04/30 1110 99.0 92 18 104/64 95 Room Air 04/30 0821 99.2 100 18 102/60 95 Room Air 04/30 0624 99.8 107 20 114/66 95 04/29 2340 99.5 120 20 112/66 95 04/29 2237 99.8 112 18 130/80 96 04/29 2051 99.1 122 16 124/58 100 Room Air 04/29 1931 101.9 126 20 141/80 100 Room Air 04/29 1803 105 16 155/75 100 Room Air Intake & Output 04/30 1600 04/30 0800 04/30 0000 Intake Total 1100 1000 2000 Output Total 700 750 Balance 793 718 4376 Intake, IV 500 1000 2000 Intake, Oral 600 0 Number 1 Bowel Movements Output, Urine 700 750 Patient 165 lb Weight Weight Reported by Patient Measurement Method Physical Exam General Appearance: Alert, Oriented X3 HEENT: Atraumatic, PERRLA Neck: Supple, No JVD Cardiovascular: Regular Rate, Normal S1, Normal S2 Lungs: Clear to Auscultation Abdomen: Normal Bowel Sounds Neurological: Normal Speech, Strength at 5/5 X4 Ext Current Medications: Current Medications Sig/Eric Start time Last Medication Dose Route Stop Time Status Admin Acetaminophen 1,000 MG .STK-MED ONE 04/30 0842 DC IV 04/30 0843 Acetaminophen 650 MG Q6P PRN 04/29 221 AC PO Acetaminophen 1,000 MG Q6P PRN 04/29 2215 AC 04/30 IV 1250 Acetaminophen 1,000 MG ONCE ONE 04/29 1944 DC 04/29 N/A 1 UNIT IV 04/29 1958 194 Acetaminophen 0 .STK-MED ONE 04/29 194 DC IV Ceftriaxone Sodium 1,000 MG DAILY 04/30 1000 AC 04/30 IV 0813 Ceftriaxone Sodium 0 .STK-MED ONE 04/29 1810 DC .ROUTE Ceftriaxone Sodium 1,000 MG ONCE ONE 04/29 174 DC 04/29 IV 04/29 174 1816 Dextrose/Sodium 1,000 ML ONCE ONE 04/30 0715 DC 04/30 Chloride IV 04/30 1514 0727 Famotidine 20 MG .STK-MED ONE 04/30 0843 DC IV 04/30 0844 Famotidine 20 MG .STK-MED ONE 04/30 0843 DC IV 04/30 0844 Fentanyl Citrate 100 MCG .STK-MED ONE 04/30 0843 DC IM 04/30 0844 Heparin Sodium 5,000 UNIT Q8 04/30 2200 AC (Porcine) SC Ketorolac 0 .STK-MED ONE 04/29 181 DC Tromethamine .ROUTE Midazolam HCl 2 MG .STK-MED ONE 04/30 0843 DC IM 04/30 0844 Morphine Sulfate 2 MG Q4P PRN 04/29 221 AC IV Morphine Sulfate 4 MG ONCE ONE 04/29 1944 DC 04/29 IV 04/29 Morphine Sulfate 0 .STK-MED ONE 04/29 1942 DC .ROUTE Ondansetron HCl 0 .STK-MED ONE 04/29 1946 DC .ROUTE Ondansetron HCl 4 MG ONCE ONE 04/29 1944 DC 04/29 IV 04/29 Pantoprazole Sodium 40 MG DAILY 04/29 2215 AC 04/30 IV 0813 Potassium Chloride 10 MEQ Q1H 04/29 2330 DC 04/30 IV 04/30 0031 0434 Potassium Chloride 40 MEQ ONCE ONE 04/29 2215 DC 04/29 PO 04/29 2216 2336 Sodium Chloride 1,000 ML Q8H 04/29 2145 DC 04/30 IV 04/30 1344 0500 Sodium Chloride 1,000 ML BOLUS ONE 04/29 1999 DC 04/29 IV 04/29 205 1955 Sodium Chloride 1,000 ML BOLUS ONE 04/29 1715 DC 04/29 IV 04/29 1814 1736 Trimethobenzamide HCl 200 MG TID PRN 04/30 0730 AC IM Last 24 Hrs of Labs/Mics: Laboratory Tests 04/30/17 0705: Anion Gap 13, Estimated GFR 38 L, BUN/Creatinine Ratio 14.3, CBC w Diff MAN DIFF ORDERED, RBC 3.26 L, MCV 89.5, MCH 30.4, MCHC 34.0, RDW 13.8, MPV 10.4, Gran % 86.9 H, Lymphocytes % 5.9 L, Monocytes % 6.7, Eosinophils % 0.5, Basophils % 0, Absolute Granulocytes 21.0 H, Segmented Neutrophils 74, Band Neutrophils 18 H, Absolute Lymphocytes 1.4, Lymphocytes 3 L, Monocytes 4, Absolute Monocytes 1.6 H, Eosinophils 1, Absolute Eosinophils 0.1, Absolute Basophils 0, Normocytic RBCs VERIFIED, Normochromic RBCs VERIFIED Microbiology 04/29 1748 BLOOD: Blood Culture - RES GRAM NEGATIVE RODS
[2017-04-30 21:58] VITALS: BP 100/70
[2017-05-01 06:48] VITALS: BP 114/66
--- NOTE | 2017-05-01 08:20 | PN- Housestaff ---
Ambar Nina MD,[facility] 05/01/17 0820: Subjective Follow-up For: Urosepsis hydronephrosis Subjective: Patient visited today, was lying in bed in no acute distress, was alert and oriented. He was complaining of severe headache. Noted that Tylenol is not going to help and was asking for Motrin. Explained that we can not administer any NSAIDs due to her kidney function. Is POD 1 of left kidney stent placement. Still has frequency. No fever or chills, no shortness of breathing, no chest pain, no other events. Review of Systems Constitutional: Reports: see HPI. Objective Last 24 Hrs of Vital Signs/I&O Vital Signs Date Time Temp Pulse Resp B/P B/P Pulse O2 O2 Flow FiO2 Mean Ox Delivery Rate 05/01 0648 97.7 87 20 114/66 95 04/30 2158 98.7 101 19 100/70 94 Room Air 04/30 1504 98.0 103 18 102/66 95 04/30 1110 99.0 92 18 104/64 95 Room Air Intake & Output 05/01 1600 05/01 0800 05/01 0000 Intake Total 1000 900 Output Total 600 Balance 1000 300 Intake, IV 100 Intake, Oral 1000 800 Output, Urine 600 Physical Exam General Appearance: Alert, Oriented X3, Cooperative, No Acute Distress, in pain, headache Skin: No Significant Lesion Skin Temp/Moisture Exam: Warm/Dry Sepsis Skin Exam (color): Normal for Ethnicity HEENT: Atraumatic, EOMI, Mucous Membr. moist/pink Lungs: Clear to Auscultation, Normal Air Movement Abdomen: Soft, No Tenderness Neurological: Normal Speech Extremities: No Edema Current Medications: Current Medications Sig/Eric Start time Last Medication Dose Route Stop Time Status Admin Acetaminophen 1,000 MG .STK-MED ONE 04/30 1853 DC IV 04/30 1854 Acetaminophen 1,000 MG .STK-MED ONE 04/30 1246 DC IV 04/30 1247 Acetaminophen 650 MG Q6P PRN 04/29 2214 AC PO Acetaminophen 1,000 MG Q6P PRN 04/29 2214 AC 04/30 IV 1856 Acetaminophen/ 1 TAB Q8P PRN 05/01 0915 AC 05/01 Butalbital/Caffeine PO 0939 Aspirin 81 MG DAILY 04/30 1847 AC 05/01 PO 0939 Ceftriaxone Sodium 1,000 MG DAILY 04/30 1000 AC 05/01 IV 0940 Dextrose/Sodium 1,000 ML ONCE ONE 04/30 0715 DC 04/30 Chloride IV 04/30 1514 0727 Diphenhydramine HCl 1 VIOLETA BID PRN 05/01 0645 AC TOP Heparin Sodium 5,000 UNIT Q8 04/30 2200 AC 05/01 (Porcine) SC 0531 Melatonin 5 MG AT BEDTIME 04/30 2199 AC 04/30 PO 2113 Morphine Sulfate 2 MG Q4P PRN 04/29 2214 AC 04/30 IV 2351 Pantoprazole Sodium 40 MG DAILY 04/29 2214 AC 05/01 IV 0940 Trimethobenzamide HCl 200 MG TID PRN 04/30 0730 AC IM Assessment/Plan Assessment: 62-year-old female presented with fever, frequency, dysuria and flank tenderness PMH of HTN, HLP, asthma, anxiety, depression, ?use of CPAP VS, Ph Ex at admission: MAXIMUM TEMPERATURE 101.9, BP 155/75, MI 105, RR 16 Labs at admission: WBC 24.6, Hgb 10.9, band 9, potassium 3.3, CR 1.5, BUN over creatinine 15.3 UA, Nit positive, WBC 75, LE positive Imagings at admission: CT scan of the abdomen: Hydronephrosis of the left kidney with edema and swelling of the kidney. There is a 3 mm stone at the left bladder trigone which is passing or has passed into the bladder. There are in additional nonobstructive bilateral renal stones. Patient was admitted to GM floor for management of following conditions: Sepsis UTI, perinephritis, hydronephrosis Patient meets sepsis criteria. UA is active and imaging suggesting obstructive nephropathy. Dr. Sibley was consulted who recommended no emergent intervention considering patient being stable. Patient underwent stend placement on 04/30/17. -Admit to general medicine floor -Vital signs -Hold blood pressure medication considering YOEL -Continue IV ceftriaxone -IV Zofran for vomiting - follow final cutlure results YOEL Most likely obstructive uropathy, BUN creatinine ratio was borderline, we will add urine lites, we will hold lisinopril, started to trend down - follow Cr Hypokalemia - repleted - follow Chronic medical problems: ?CPAP, Asthma, HTN, smoking - continue CPAP - nicotin patch - hold BP meds, will follow - asprin restarted NPO midnight DVT ppx: ALPS FC Problem List: 1. UTI (urinary tract infection) 2. Sepsis 3. Hydronephrosis Pain Ratin Pain Location: headache Pain Goal: Pain 4 or less Pain Plan: Fiorecet Tomorrow's Labs & Rationales: CBC BEP Geovanni Dewitt MD 05/01/17 1533: Attending MD Review Statement Attending Statement Attending MD Statement: examined this patient, discuss w/resident/PA/A OPERATOR, discussed with nursing Attending Assessment/Plan: Patient seen and examined at bedside. Patient's headache is still present on and off. No specific triggers. Also mentions that after about 40 minutes of getting IV ceftriaxone patient has symptoms of nausea vomiting, this is happened constantly in the past couple of days. 1. E.coli UTI sepsis and renal calculi 2. S/P Cysto and renal stent to left ureter - POD#1 2. Obstructive uropathy with mild hydro 4. YOEL - Resolving 5. Essential hypertension 6. ?history of diabetes 7. Nonspecific headaches possibly related to poor by mouth intake in the preceding days - patient refuses Tylenol continue to monitor 8. Leukocytosis is resolving Plan - Clear liquid diet, can be advanced as tolerated - Resume aspirin - Replete electrolytes - Switched to IV Unasyn - Day 1(recieved 2 days of IV Rocephin) - Initiated on Fioricet for headache - Smoking cessation counseling, PRN nicotine patch - Check HbA1c - Appreciate urology recommendations. DVT ppx Hep SC. Full code.
[2017-05-01 12:10] LABS: ABSOLUTE BASOPHIL COUNT 0.1 /CUMM (0.0-0.2); ABSOLUTE EOSINOPHIL COUNT 0.4 /CUMM (0.0-0.7); ABSOLUTE GRANULOCYTE CT 13.8 /CUMM (1.4-6.5); ABSOLUTE LYMPH COUNT 1.6 /CUMM (1.2-3.4); ABSOLUTE MONOCYTE COUNT 1.3 /CUMM (0.10-0.60); BASOPHIL % 0.3 % (0.0-2.0); EOSINOPHIL % 2.5 % (0-5); GRANULOCYTE % 80.8 % (42.2-75.2); MEAN CORPUSCULAR HGB 29.5 PG (27.0-31.0); MEAN CORPUSCULAR HGB CONC 32.4 G/DL (33.0-37.0); MEAN CORPUSCULAR VOLUME 91.2 FL (81.0-99.0); MEAN PLATELET VOLUME 9.9 FL (7.4-10.4); PLATELET COUNT 191 /CUMM (130-400); RBC DISTRIBUTION WIDTH 14.1 % (11.5-14.5); RED BLOOD CELL CT 3.29 /CUMM (4.20-5.40); WHITE BLOOD CELL COUNT 17.1 /CUMM (4.8-10.8)
[2017-05-01 15:15] VITALS: BP 120/62
--- NOTE | 2017-05-01 21:08 | CT SCAN REPORT ---
EXAMINATION: CT HEAD WITHOUT CONTRAST CLINICAL INFORMATION: Headache. COMPARISON: 07/24/2015 TECHNIQUE: Contiguous axial imaging was performed from the skull base to vertex without intravenous administration of contrast. FINDINGS: There is no evidence of acute intracranial hemorrhage or territorial infarction. No abnormal mass effect or midline shift is seen. [id number] matter differentiation is well preserved. No extra-axial fluid collections are identified. The ventricles are normal in size. There is no abnormal attenuation within the brain parenchyma. The osseous structures and soft tissues are normal. Mucosal thickening of the ethmoid, bilateral maxillary, sphenoid sinus. IMPRESSION: 1. No CT evidence of acute intracranial pathology. 2. Sinus disease as above.
[2017-05-01 21:50] VITALS: BP 120/68
[2017-05-02 06:47] VITALS: BP 134/76
--- NOTE | 2017-05-02 07:40 | PN- Housestaff ---
See Addendum Subjective Follow-up For: Urosepsis hydronephrosis s/p left uretheral stent placement Subjective: no overnight event. Patient c/o of frequent restroom visit for pee however denied hematuria. Review of Systems Constitutional: Reports: see HPI. Objective Last 24 Hrs of Vital Signs/I&O Vital Signs Date Time Temp Pulse Resp B/P B/P Pulse O2 O2 Flow FiO2 Mean Ox Delivery Rate 05/02 0647 97.9 89 20 134/76 96 05/01 2150 98.0 89 19 120/68 96 Room Air 05/01 1600 Nasal 1.0L Cannula 05/01 1515 97.9 80 18 120/62 96 Room Air Intake & Output 05/02 1600 05/02 0800 05/02 0000 Intake Total 320 1010 Output Total 500 Balance -180 1010 Intake, IV 220 110 Intake, Oral 100 900 Output, Urine 500 Physical Exam General Appearance: Alert, Oriented X3, Cooperative, No Acute Distress Cardiovascular: Regular Rate Lungs: Clear to Auscultation, Normal Air Movement Abdomen: Normal Bowel Sounds, Soft, No Tenderness Neurological: Normal Speech, Mal[place]ian speaking. Extremities: No Cyanosis, No Edema, Normal Pulses Current Medications: Current Medications Sig/Eric Start time Last Medication Dose Route Stop Time Status Admin Acetaminophen 650 MG Q6P PRN 04/29 PO 1003 Acetaminophen 1,000 MG Q6P PRN 04/29 2214 AC 04/30 IV 1856 Acetaminophen/ 1 TAB Q8P PRN 05/01 0915 AC 05/02 Butalbital/Caffeine PO 0532 Ampicillin Sodium/ 3,000 MG Q6 05/01 1800 05/02 Sulbactam Sodium IV 0530 Sodium Chloride 100 ML Aspirin 81 MG DAILY 04/30 1847 05/02 PO 1002 Diphenhydramine HCl 1 VILOETA BID PRN 05/01 0645 AC TOP Heparin Sodium 5,000 UNIT Q8 04/30 (Porcine) SC 2206 Melatonin 5 MG AT BEDTIME 04/30 PO 2246 Metoclopramide HCl 10 MG ONCE PRN 05/01 2000 DC IV 05/01 2300 Omeprazole 40 MG DAILY AC 05/02 0700 05/02 PO 0532 Quetiapine Fumarate 25 MG AT BEDTIME 05/01 2199 AC 05/01 PO 2246 Trimethobenzamide HCl 200 MG TID PRN 04/30 0730 AC IM Last 24 Hrs of Lab/Vladislav Results Last 24 Hrs of Labs/Mics: Laboratory Tests 05/02/17 0645: Anion Gap 15, Estimated GFR 42 L, BUN/Creatinine Ratio 16.2, CBC w Diff NO MAN DIFF REQ, RBC 3.11 L, MCV 90.5, MCH 30.2, MCHC 33.3, RDW 14.1, MPV 9.6, Gran % 70.8, Lymphocytes % 14.5 L, Monocytes % 11.5 H, Eosinophils % 3.2, Basophils % 0, Absolute Granulocytes 10.3 H, Absolute Lymphocytes 2.1, Absolute Monocytes 1.7 H, Absolute Eosinophils 0.5, Absolute Basophils 0 Assessment/Plan Assessment: 62-year-old female presented with fever, frequency, dysuria and flank tenderness PMH of HTN, HLP, asthma, anxiety, depression, ?use of CPAP VS, Ph Ex at admission: MAXIMUM TEMPERATURE 101.9, BP 155/75, NV 105, RR 16 Labs at admission: WBC 24.6, Hgb 10.9, band 9, potassium 3.3, CR 1.5, BUN over creatinine 15.3 UA, Nit positive, WBC 75, LE positive Imagings at admission: CT scan of the abdomen: Hydronephrosis of the left kidney with edema and swelling of the kidney. There is a 3 mm stone at the left bladder trigone which is passing or has passed into the bladder. There are in additional nonobstructive bilateral renal stones. Patient was admitted to [facility] floor for management of following conditions: Sepsis UTI, perinephritis, hydronephrosis Patient meets sepsis criteria on admission. UA is active and imaging suggesting obstructive nephropathy. Dr. Sibley was consulted who recommended no emergent intervention considering patient being stable. Patient underwent stend placement on 04/30/17. -Hold blood pressure medication considering YOEL, will resume after discahrge. -Continued on IV unasyn per urine culture of E.Coli, will discharge on Augmentin to complete a 14-day course of complicated UTI/Pyeronephritis YOEL Most likely obstructive uropathy, BUN creatinine ratio was borderline. - follow Cr, resolved to 1.3 on latest lab. will follow up outpatient w/ Dr. Sibley Hypokalemia - K 3.1 on latest lab, again decreased, will give k-dur 40mg prior discharge. - follow Chronic medical problems: ?CPAP, Asthma, HTN, smoking - continue CPAP - nicotin patch - hold BP meds, will resume after. - asprin restarted heart healthy diet. DVT ppx: ALPS FC Problem List: 1. Renal calculi 2. Hydronephrosis Pain Ratin Pain Location: NA Pain Goal: Remain pain free Pain Plan: see AP Tomorrow's Labs & Rationales: NA
[2017-05-02 09:00] LABS: ABSOLUTE BASOPHIL COUNT 0 /CUMM (0.0-0.2); ABSOLUTE EOSINOPHIL COUNT 0.5 /CUMM (0.0-0.7); ABSOLUTE GRANULOCYTE CT 10.3 /CUMM (1.4-6.5); ABSOLUTE LYMPH COUNT 2.1 /CUMM (1.2-3.4); ABSOLUTE MONOCYTE COUNT 1.7 /CUMM (0.10-0.60); BASOPHIL % 0 % (0.0-2.0); EOSINOPHIL % 3.2 % (0-5); GRANULOCYTE % 70.8 % (42.2-75.2); HEMATOCRIT 28.2 % (37-47); MEAN CORPUSCULAR HGB 30.2 PG (27.0-31.0); MEAN CORPUSCULAR HGB CONC 33.3 G/DL (33.0-37.0); MEAN CORPUSCULAR VOLUME 90.5 FL (81.0-99.0); MEAN PLATELET VOLUME 9.6 FL (7.4-10.4); PLATELET COUNT 197 /CUMM (130-400); RBC DISTRIBUTION WIDTH 14.1 % (11.5-14.5); RED BLOOD CELL CT 3.11 /CUMM (4.20-5.40); WHITE BLOOD CELL COUNT 14.5 /CUMM (4.8-10.8)
[2017-05-02] MEDS ORDERED: AUGMENTIN 875-1 EACH PO ×2 (10:50→11:51)
--- NOTE | 2017-05-02 10:54 | Patient Discharge Instructions ---
Discharge Instructions General Discharge Information You were seen/treated for: #Urosepsis #s/p left uretheral stent placement Special Instructions: - Please follow up with your urologist Dr. Sibley within 1-2 weeks of discharge for your stent placement. - Please follow up with your primary care physician within 1-2 weeks of discharge. Inform your primary care physician of this admission to [facility]. - Continue your current medications per discharge instructions. - Please watch for these problems: Fever, Chills, Nausea, Vomiting, Shortness of Breath, Productive Cough, Chest Pain/Discomfort, Abdominal Pain, Active Bleeding or Bloody urine/stool. Diet Continue normal diet: Yes Activity Full Activity/No Limits: Yes Acute Coronary Syndrome Inclusion Criteria At DC or during hospital stay patient has or had the following: ACS DIAGNOSIS No Discharge Core Measures Meds if any: Prescribed or Continued at Discharge Meds if any: NOT Prescribed or Continued at Discharge Congestive Heart Failure Inclusion Criteria At DC or during hospital stay patient has or had the following: CHF DIAGNOSIS No Discharge Core Measures Meds if any: Prescribed or Continued at Discharge Meds if any: NOT Prescribed or Continued at Discharge Cerebrovascular accident Inclusion Criteria At DC or during hospital stay patient has or had the following: CVA/TIA Diagnosis No Discharge Core Measures Meds if any: Prescribed or Continued at Discharge Meds if any: NOT Prescribed or Continued at Discharge Venous thromboembolism Inclusion Criteria VTE Diagnosis No VTE Type NONE VTE Confirmed by (Test) NONE Discharge Core Measures - Per Current guidelines, there needs to be overlap - treatment for the first 5 days of Warfarin therapy. - If discharged on Warfarin prior to 5 days of - overlap therapy, the patient will need to be - assessed for post discharge needs including - *Post discharge parental anticoagulation - *Warfarin and/or parental anticoagulation education - *Follow up date to check INR post discharge At least 5 days overlap therapy as Inpatient No Meds if any: Prescribed or Continued at Discharge Note: Overlap Therapy is Warfarin and Anticoagulant Meds if any: NOT Prescribed or Continued at Discharge
--- NOTE | 2017-05-02 11:52 | Discharge Summary ---
Visit Information Visit Dates Admission Date: 04/29/17 Hospital Course Course Attending Physician: Esther Velazquez MD [facility]: Ms. Perez is a 62 yo Jordanian speaking F smoker with h/o HTN, HLD, anxiety, presented to ER with 5-day h/o fever, chills, bilateral flank pain (L>R), nausea and urinary frequency and urgency. Patient reportedly urinary frequency but with only small amount of urine output each time. She also reports 2-3 episodes of diarrhea prior this admission, and c/o headache and dizziness+. Patient denied h /o nephrolithiasis or urologic procedure or recurrent UTI's. ER Course: Vitals: Tmax 101.9, HR 100-120's, BP 112/66, sats 95% RA. Exam: AAO, in mild distress due to pain, very dry mucous membranes, Neck supple, Bilateral CVA tenderness, Chest b/l clear, Heart S1S2 regular, tachycardic, Abd soft, b/l flank tenderness, BS+, LE: no edema. Labs: WBC 24.6, H/H 10.9/32.2, bands 9, INR 1.22, bicarb 20, BUN 23, creat 1.5 ( baseline 0.8), glucose 231, lactic acid 1.4, Alk phos 136. UA hazy, proteinuria, positive nitrite, large leukocyte esterase, RBC 10-15, WBC >75, many bacteria. CT abd/pelvis: hydronephrosis of left kidney with edema and swelling of kidney. 3 mm stone at left bladder trigone and additional nonobstructive b/l renal stones. EKG: sinus tachycardia. Patient was admitted to general medicine for following managements: #Sepsis 2/2 to complicated UTI/perinephritis w/ hydronephrosis Patient meets sepsis criteria on admission. Patient's UA was positive for UTI and CT imaging suggested obstructive nephropathy. Dr. Sibley was consulted and patient underwent left stent placement on 04/30/17. On admission, patient was started on ceftriaxone and later downgraded to unasyn as patient's urine culture /sensitivity came out. Patient was discharge on oral augmentin to complete a total of 14-days antibiotic treatment, and will follow up with Dr. Sibley outpatient in 2 weeks for ESWL and stent removal/re-evaluation #YOEL Patient's Cr on admission was 1.5, elevated from her baseline of 0.8 from 2016. Patient's YOEL was most likely obstructive uropathy, BUN creatinine ratio was borderline. Constance's Cr resolved to 1.3 on latest lab. Patient will follow up outpatient w/ Dr. Sibley for Cr trending as the obstruction resolving gradually. #Hypokalemia Patient's K on amission was 3.3, repleted to 4.4 during hospital stay, however decreased to K 3.1 on latest lab prior discharge. Patient received k-dur 40mg prior discharge and will recheck BEP. #Chronic medical problems: ?CPAP, Asthma, HTN, smoking Patient was continued on CPAP, nictoine patch. Patient's ASA was held due to stent placement, and HTN meds held for YOEL. Will resume after discharge. heart healthy diet. DVT ppx: ALPS FC Allergies: Coded Allergies: codeine (NIGHTMARES 05/10/15) oxycodone (VOMITING 05/10/15) Pertinent Lab Results: SERVICE DATE: 04/29/17-1726 EXAM TYPE: CAT - CT ABD & PELVIS W/O IV CONTRAS IMPRESSION: Hydronephrosis of the left kidney with edema and swelling of the kidney. There is a 3 mm stone at the left bladder trigone which is passing or has passed into the bladder. There are in additional nonobstructive bilateral renal stones. SERVICE DATE: 04/30/17- EXAM TYPE: RAD - [id number] VIEW IMPRESSION: No filling defect or narrowing seen in the left ureter. A left ureteral stent or sheath is noted on the very last image. SERVICE DATE: 05/01/17- EXAM TYPE: CAT - CT HEAD WO IV CONTRAST IMPRESSION: 1. No CT evidence of acute intracranial pathology. 2. Sinus disease as above. Laboratory Tests 05/02 0645 Chemistry Sodium (137 - 145 mmol/L) 144 Potassium (3.5 - 5.1 mmol/L) 3.1 L Chloride (98 - 107 mmol/L) 113 H Carbon Dioxide (22 - 30 mmol/L) 16 L Anion Gap (5 - 16) 15 BUN (7 - 17 mg/dL) 21 H Creatinine (0.5 - 1.0 mg/dL) 1.3 H Estimated GFR (>60 ml/min) 42 L BUN/Creatinine Ratio (7 - 25 %) 16.2 Hematology CBC w Diff NO MAN DIFF REQ WBC (4.8 - 10.8 /CUMM) 14.5 H RBC (4.20 - 5.40 /CUMM) 3.11 L Hgb (12.0 - 16.0 G/DL) 9.4 L Hct (37 - 47 %) 28.2 L MCV (81.0 - 99.0 FL) 90.5 MCH (27.0 - 31.0 PG) 30.2 MCHC (33.0 - 37.0 G/DL) 33.3 RDW (11.5 - 14.5 %) 14.1 Plt Count (130 - 400 /CUMM) 197 MPV (7.4 - 10.4 FL) 9.6 Gran % (42.2 - 75.2 %) 70.8 Lymphocytes % (20.5 - 51.1 %) 14.5 L Monocytes % (1.7 - 9.3 %) 11.5 H Eosinophils % (0 - 5 %) 3.2 Basophils % (0.0 - 2.0 %) 0 Absolute Granulocytes (1.4 - 6.5 /CUMM) 10.3 H Absolute Lymphocytes (1.2 - 3.4 /CUMM) 2.1 Absolute Monocytes (0.10 - 0.60 /CUMM) 1.7 H Absolute Eosinophils (0.0 - 0.7 /CUMM) 0.5 Absolute Basophils (0.0 - 0.2 /CUMM) 0 Disposition Summary Disposition Principal Diagnosis: Urosepsis with acute pyelonephritis, E.Coli Obstructive uropathy with left sided hydronephrosis YOEL Hypokalemia Essential hypertension Additional Diagnosis: As Above Discharge Disposition: home or self care Discharge Instructions General Discharge Information Code Status: Full Code Patient's Diet: Regular Patient's Activity: As tolerated Medications at Discharge Discharge Medications: Continue taking these medications: Aspirin (Ecotrin*) 81 MG TABLET. 1 Tablet ORAL DAILY Qty = 30 Comments: Last Taken:05/02/17 Time:10:00 AM Albuterol Sulfate (Ventolin Hfa) 18 GM HFA.AER.AD 2 Puff Inhale through mouth EVERY 4-6 HOURS NEEDED as needed for SOB Qty = 1 Comments: NOT GIVEN IN HOSPITAL Atorvastatin Calcium (Atorvastatin Calcium) 20 MG TABLET 1 Tablet ORAL DAILY Qty = 90 Comments: NOT GIVEN IN HOSPITAL Butalb/Acetaminophen/Caffeine (Fjkhwf-Scngannl-Trux 50-300-40) 50 MG-300 MG-40 MG CAPSULE 1 Tablet ORAL Q6H as needed for VILLAREAL Qty = 28 Hydroxyzine HCl (hydrOXYzine HCl) 50 MG TABLET 0.5 Tablet ORAL TWICE DAILY Qty = 30 Comments: NOT GIVEN IN HOSPITAL Quetiapine Fumarate (Quetiapine Fumarate) 100 MG TABLET 0.5-1 Tablet ORAL TAKE AT BEDTIME Qty = 30 Venlafaxine HCl (Venlafaxine HCl ER) 75 MG CAP.ER.24H 1 Capsule ORAL DAILY Qty = 30 Cholecalciferol (Vitamin D3) (Vitamin D) 2,000 UNIT TABLET 1 Tablet ORAL DAILY Qty = 90 Comments: NOT GIVEN IN HOSPITAL Lisinopril (Lisinopril) 10 MG TABLET 1 Tablet ORAL DAILY Qty = 90 Comments: Last Taken: Time:NOT GIVEN IN HOSPITAL Pantoprazole Sodium (Pantoprazole Sodium) 40 MG TABLET.DR 1 Tablet ORAL DAILY Qty = 90 Comments: NOT GIVEN Metformin HCl (Metformin HCl) 500 MG TABLET 1 Tablet ORAL DAILY Qty = 90 Comments: NOT GIVEN Start taking the following new medications: Amoxicillin/Potassium Clav (Augmentin 875-125 Tablet) 875 MG-125 MG TABLET 1 Tablet ORAL TWICE DAILY Qty = 24 No Refills Instructions: . Copies To: Lidya Maldonado APRN Attending MD Review Statement Documenting Attending: Esther Velazquez MD Other Findings: Follow up with urology in 2 weeks of discharge and PCP in 1-2 week of discharge.
[2017-05-02 15:51] VITALS: BP 122/72
[2017-05-02 15:55] VITALS: BP 122/72
--- NOTE | 2017-05-03 15:26 | Operative Report ---
Operative/Inv Procedure Report Surgery Date: 04/30/17 Name of Procedure: Cystoscopy. Left ureteroscopy with basket extraction of UVJ stone. Left stent placement. Fluoroscopy. Pre-Operative Diagnosis: Left obstructing distal ureter stone, with severe hydronephrosis, and sepsis. Post-Operative Diagnosis: Same Estimated Blood Loss: scant Surgeon/Activities Counselor: MD miroslava, [facility] Anesthesia: moderate sedation Drains: 18fr roman-dc on return to floor when pt ambulatory Complications: none Condition: improved. Operative Indication: left hydro. due to obstructing stone, with sepsis. Operative/Procedure Note Note: The patient was taken to the operating room, and placed on the OR table in supine position. Timeout was performed, with the patient awake, in order to confirm correct identity, procedure, laterality, anesthesia, and other pertinent perioperative information. After adequate anesthesia and antibiotics, the patient was then placed lithotomy stirrups, draped and prepped in the usual surgical fashion. A 22 Citizen [place] cystoscope sheath with 30 angle lens was inserted into the bladder without difficulty. Upon entering the bladder, the bladder was noted to be free of tumor free of stone. Both orifices were in their orthotopic position. The left ureter orifice was obstructed with a spiculated stone. I was unable to bypass the Glidewire into the left ureter, therefore ureteroscopy was necessary. A Micro-6 rigid ureteroscope was then inserted under direct visualization into the bladder. The left orifice was intubated with the ureteroscope dislodging the stone into the proximal ureter. A 0 tip Bard basket was then inserted through the rigid ureteroscope. The basket was deployed, grasping the 3 mm stone. The ureteroscope along with the basket and entire stone was then removed without difficulty. Large amount of purulent discharge was noted coming from the left kidney at this time. The ureteroscope was removed, and the cystoscope was then reinserted into the bladder. A 0.035 Glidewire was advanced into the left ureter, and left renal pelvis, without difficulty. Correct placement of the wire was confirmed with fluoroscopy. Over this Glidewire, a 6 x 22 Bard onlay stent was railroaded, with direct cystoscopic visualization, and fluoroscopic visualization. When the stent was in proper place, the Glidewire was removed, and the stent remained in good position. The bladder was then drained after the cystoscope was removed, and with placement of an 18 Citizen [place] Roman catheter with 10 mL balloon. The patient tolerated the procedures well, and was then taken to the recovery room in satisfactory condition. The patient is to return to the floor under medical service for IV antibiotics. She will have a right ESWL in 2 weeks' time, and at 4 weeks' time, she will have a left ESWL for the renal stones with cystoscopy and left stent removal. Findings: 3mm stone stuck at UVJ-required removal prior to inserting stent: large amount purulent drainage from left kidney after stent placement. Discharge Disposition: PACU CC: Miroslava GASTON,Jorge
== END 2017-05-02 16:20 | DRG 710 ==
LOC: ERH 16:07 → 2NB 20:19 → ERHI 20:19 → ENRESERV 22:30 → ENTRNSPT 22:39 → 2NB 23:01 → CMPTRNSPT 04-30 09:14 → ENTRNSPT 04-30 10:35 → EDTRNSPT 04-30 10:41 → EDTRNSPTSTS 04-30 10:41 → CMPTRNSPT 04-30 11:06 → 2NB 05-02 07:29 → ENPENDDIS 05-02 14:05 → ENTRNSPT 05-02 15:56 → CMPTRNSPT 05-02 16:15 → 2NB 05-02 16:20
PROVIDERS: Internal Medicine; Radiology Vascular & Interventional Radiology; Student in an Organized Health Care Education/Training Program
PROC: 0T748DZ Dilation of Left Kidney Pelvis with Intraluminal Device, Via Natural or Artificial Opening Endoscopic (ICD-10-PCS; principal; 2017-04-30)
DX: A41.51 Sepsis due to Escherichia coli [E. coli] (principal); N17.9 Acute kidney failure, unspecified; N13.6 Pyonephrosis; J45.909 Unspecified asthma, uncomplicated; N39.0 Urinary tract infection, site not specified; B96.20 Unspecified Escherichia coli [E. coli] as the cause of diseases classified elsewhere; E87.6 Hypokalemia; E11.8 Type 2 diabetes mellitus with unspecified complications; F17.200 Nicotine dependence, unspecified, uncomplicated; F41.9 Anxiety disorder, unspecified; F32.9 Major depressive disorder, single episode, unspecified; E78.5 Hyperlipidemia, unspecified; Z88.5 Allergy status to narcotic agent; Z79.84 Long term (current) use of oral hypoglycemic drugs; Z79.82 Long term (current) use of aspirin; H91.90 Unspecified hearing loss, unspecified ear; I12.9 Hypertensive chronic kidney disease with stage 1 through stage 4 chronic kidney disease, or unspecified chronic kidney disease; N18.9 Chronic kidney disease, unspecified; D72.829 Elevated white blood cell count, unspecified; M19.90 Unspecified osteoarthritis, unspecified site
CPT/HCPCS: 2NBSP; 84133; 84300; 36415; 36592; 74018; 74176; 81001; 82436; 82570; 87040; 87086; 87804; 87804-59; 93005; 93010; 96361; 96374; 96375; 99291; J0131; J0696; J1644; J1885; J2405; J2765; J3250; J3490; J7042

== ENCOUNTER 2017-05-15 21:05 | Emergency (ER) | payer OTHER ==
[~2017-05-15] VITALS: Ht 160 cm; Wt 63.5 kg
[~2017-05-15 21:05] MED LIST changes: +ATORVASTATIN CA20 M1 PO; +AUGMENTIN 875-1 EACH PO; +BACTRIM DS TAB1 EACH PO; +BUTALB-ACETAMI1 EAC1 PO; +FLUTICASONE PRO16 GM NASB; +HYDROXYZINE HCL50 M2 PO; +LISINOPRIL10 M1 PO; +METFORMIN HCL500 M3 PO; +PANTOPRAZOLE SO40 M1 PO; +QUETIAPINE FUM100 M1 PO; +QUETIAPINE FUMA25 M1 PO; +VENLAFAXINE HCL75 M1 PO; +VENLAFAXINE HCL75 MG PO; +VITAMIN D2000 UNI1 PO; +ZOFRAN ODT4 M1 SL
--- NOTE | 2017-05-15 22:30 | ED GI/GU/ABDOMINAL COMPLAINT ---
History of Present Illness General Chief Complaint: Abdominal Pain/Flank Pain Stated Complaint: ABD PAIN, ?INFECTION PER PT, +N/V Source: patient, old records Exam Limitations: poor historian Vital Signs & Intake/Output Vital Signs & Intake/Output Vital Signs Date Time Temp Pulse Resp B/P B/P Pulse O2 O2 Flow FiO2 Mean Ox Delivery Rate 05/15 2206 96 Room Air 05/15 2110 97.5 105 20 127/84 98 Room Air ED Intake and Output 05/16 0000 05/15 1200 Intake Total Output Total Balance Patient 140 lb Weight Weight Reported by Patient Measurement Method Allergies Coded Allergies: Sulfa (Sulfonamide Antibiotics) (Mild, ITCHING 05/15/17) codeine (NIGHTMARES 05/13/17) oxycodone (VOMITING 05/13/17) Reconcile Medications Albuterol Sulfate (Ventolin Hfa) 18 GM HFA.AER.AD 2 PUF INH Q4-6 PRN PRN SOB Aspirin (Ecotrin*) 81 MG TABLET.DR 1 TAB PO DAILY HEART HEALTH (Reported) Atorvastatin Calcium 20 MG TABLET 1 TAB PO DAILY CHOLESTEROL (Reported) Butalb/Acetaminophen/Caffeine (Webxqi-Aursbcym-Qbeg 50-300-40) 50 MG-300 MG-40 MG CAPSULE 1 TAB PO Q6H PRN VILLAREAL (Reported) Cholecalciferol (Vitamin D3) (Vitamin D) 2,000 UNIT TABLET 1 TAB PO DAILY SUPPLEMENT (Reported) Ciprofloxacin HCl (Cipro) 500 MG TABLET 1 TAB PO BID URINE/KIDNEY INFECTION Fluticasone Propionate 50 MCG/ACTUATION SPRAY.SUSP 2 SPRAY NASB PRN ALLERGIES (Reported) Hydroxyzine HCl (hydrOXYzine HCl) 50 MG TABLET 0.5 TAB PO BID ANXIETY ( Reported) Lisinopril 10 MG TABLET 1 TAB PO DAILY BP (Reported) Metformin HCl 500 MG TABLET 0.5 TAB PO BID DM (Reported) Ondansetron (Zofran Odt) 4 MG TAB.RAPDIS 1 TAB SL Q6 PRN NAUSEA/VOMITING Ondansetron (Zofran Odt) 4 MG TAB.RAPDIS 1 TAB SL TID NAUSEA Pantoprazole Sodium 40 MG TABLET.DR 1 TAB PO DAILY GI (Reported) Quetiapine Fumarate 100 MG TABLET 1 TAB PO QHS MENTAL HEALTH (Reported) Quetiapine Fumarate 25 MG TABLET 1 TAB PO BID MENTAL HEALTH (Reported) Venlafaxine HCl 75 MG TABLET 1 TAB PO BID MENTAL HEALTH (Reported) Triage Note: PT HERE WITH C/O "KIDNEY PAIN" AND ABD PAIN. PT REPORTS BEING TREATED FOR KIDNEY STONES AND FINISHING HER ANTIBIOTIC LAST NIGHT, AMOXICILLIN.PT REPORTS VOMITTING EARLIER. Triage Nurses Notes Reviewed? yes ? N Is pt currently ? No Onset: Gradual Duration: hour(s):, constant, continues in ED, waxing and waning Quality/Severity: moderate, severe Location: LEFT SIDED HPI: Patient presents for evaluation of feeling dizzy and dehydrated and having abdominal pressure diffusely. Patient states she had a "tube" placed in the left side of her abdomen right Dr. Sibley. She states initially her urine was clear but over the course of today the urine appears brownish in color. She is also feeling a pressure in the suprapubic region. She denies any associated fever or cold symptoms over the past 24-48 hours. Past History Travel History Traveled to Sun past 21 day No Medical History Any Pertinent Medical History? see below for history EENT: hearing loss Cardiovascular: hypertension, hyperlipidemia Respiratory: asthma Renal: kidney stone Psychiatric: anxiety, depression Other Medical Hx: Urinary tract infections History of MRSA: No History of VRE: No History of CDIFF: No Surgical History Surgical History: SINUS SURGERY renal stent, lithotripsy Psychosocial History Who do you live with Family Services at Home None What is your primary language Japanese Tobacco Use: Current Daily Use Daily Tobacco Use Amount/Type: => 5 Cigarettes daily ETOH Use: denies use Illicit Drug Use: denies illicit drug use Family History Hx Contributory? No Review of Systems Review of Systems Constitutional: Reports: no symptoms. EENTM: Reports: no symptoms. Respiratory: Reports: no symptoms. Cardiovascular: Reports: no symptoms. GI: Reports: no symptoms. Genitourinary: Reports: see HPI. Musculoskeletal: Reports: no symptoms. Skin: Reports: no symptoms. Neurological/Psychological: Reports: no symptoms. Hematologic/Endocrine: Reports: no symptoms. Immunologic/Allergic: Reports: no symptoms. All Other Systems: Reviewed and Negative Physical Exam Physical Exam Gastrointestinal: see below Comments: Gen.: Well-nourished, well-developed, no acute respiratory distress. Head: Normocephalic, atraumatic. Eyes: Normal inspection bilaterally Ears: Normal inspection bilaterally Nose: Normal inspection Throat/mouth : Moist mucosa Neck: Supple, full range of motion, no goiter Heart: Regular rate and rhythm, no murmurs rubs or gallops Lungs: Clear to auscultation bilaterally with normal air entry Chest: Nontender Back: Normal range of motion Abdomen: Soft, diffuse tenderness with brief voluntary guarding but no rebound, nondistended, normal bowel sounds Extremities: Normal range of motion grossly, equal radial pulses, no cyanosis clubbing or edema Neurologic: Cranial nerves grossly intact, speech is clear Skin: warm and dry Psychiatric: Calm, cooperative, no apparent delusions or hallucinations Core Measures ACS in differential dx? No Sepsis Present: No Sepsis Focused Exam Completed? No Progress Differential Diagnosis: HYDRONEPHROSIS, HYDROURETER, INFECTED RENAL COLIC, POSTOPERATIVE COMPLICATION, DIVERTICULITIS, PANCREATITIS Plan of Care: Orders Procedure Date/time Status URINALYSIS 05/16 2227 Complete LIPASE 05/16 2227 Complete COMPREHENSIVE METABOLIC PANEL 05/16 2227 Complete CBC WITHOUT DIFFERENTIAL 05/16 2227 Complete Current Medications Sig/Eric Start time Last Medication Dose Stop Time Status Admin Ciprofloxacin 500 MG ONCE ONE 05/16 14 UNVr (Cipro) 05/17 15 Ondansetron HCl 4 MG ONCE ONE 05/16 14 UNVr (Zofran) 05/17 15 Laboratory Tests 05/15/17 2252: Anion Gap 12, Estimated GFR 56 L, BUN/Creatinine Ratio 22.0, Glucose 92, Calcium 10.0, Total Bilirubin 0.2, AST 20, ALT 38, Alkaline Phosphatase 203 H, Total Protein 7.5, Albumin 3.7, Globulin 3.8, Albumin/Globulin Ratio 1.0 L, Lipase 318 H, CBC w Diff NO MAN DIFF REQ, RBC 3.96 L, MCV 89.7, MCH 30.1, MCHC 33.6, RDW 13.8, MPV 8.6, Gran % 54.7, Lymphocytes % 27.7, Monocytes % 5.1, Eosinophils % 12.2 H, Basophils % 0.3, Absolute Granulocytes 9.2 H, Absolute Lymphocytes 4.6 H, Absolute Monocytes 0.8 H, Absolute Eosinophils 2.0, Absolute Basophils 0.1 05/15/173: Urine Color YEL, Urine Clarity CLDY H, Urine pH 6.5, Ur Specific [place] 1.020, Urine Protein 100 H, Urine Ketones NEG, Urine Nitrite NEG, Urine Bilirubin NEG, Urine Urobilinogen 0.2, Ur Leukocyte Esterase SMALL H, Ur Microscopic SEDIMENT EXAMINED, Urine RBC >75 H, Urine WBC 10-15 H, Ur Epithelial Cells FEW, Urine Crystals 4+ CA OX H, Urine Hemoglobin LARGE H, Urine Glucose NEG Diagnostic Imaging: Discussed w/RAD: CT Scan. Radiology Impression: PATIENT: KALANI VEGAS PRESENT AGE: 62 PATIENT ACCOUNT NO: [id number] : 56 LOCATION: [facility] ORDERING PHYSICIAN: Nahid Hughes MD SERVICE DATE: 05/15/17 EXAM TYPE: CAT - CT ABD & PELVIS W/O IV CONTRAS EXAMINATION: CT ABDOMEN AND PELVIS WITHOUT CONTRAST CLINICAL INFORMATION: Diffuse abdominal pain status post left ureteral stent COMPARISON: 05/09/2017 TECHNIQUE: Multidetector volumetric imaging was performed from the superior aspect of the liver through the pubic symphysis. Sagittal and coronal reformatted images were obtained on the technologist's workstation. DLP: 492.87 mGy-cm FINDINGS: LUNG BASES: There is a 3 mm right middle lobe lung nodule on image 47/792. LIVER, GALLBLADDER, AND BILIARY TREE: The liver is normal in size, shape, and attenuation. No focal hepatic lesion or biliary ductal dilatation is present. The gallbladder is contracted and suboptimally evaluated. PANCREAS: Unremarkable. SPLEEN: Unremarkable. ADRENAL GLANDS: Unremarkable. KIDNEYS AND URETERS: A left ureteral stent is present with the proximal end in the region of the lower pole calyces and distal end in the urinary bladder, similar to prior. No left hydronephrosis. Mild stranding is seen adjacent to some segments of the left ureter which appears new from the prior study. Tiny calculi are noted in the lower pole of the left kidney. No right hydronephrosis. There are several scattered tiny calculi throughout the right kidney. Cortical scarring is noted in the right upper pole, and there is a suspected tiny adjacent renal cyst. BLADDER: Partially distended without wall thickening. There may be a tiny calculus in the left aspect of the bladder near the distal portion of the ureteral stent. GASTROINTESTINAL TRACT: Colonic diverticulosis is noted. The small and large bowel are otherwise unremarkable without evidence of obstruction or pericolonic inflammatory change. The appendix is unremarkable. ABDOMINAL WALL: No significant hernia is appreciated. LYMPH NODES: Normal. VASCULAR: Scattered atherosclerotic calcifications are present. PELVIC VISCERA: There are several scattered calcifications in the uterus consistent with underlying fibroids. OSSEOUS STRUCTURES: Degenerative changes are noted in the spine. IMPRESSION: 1. Left ureteral stent in place, without hydronephrosis. Stranding is present adjacent to some segment of the left ureter which appears new from the prior study, raising concern for inflammation/ infection. 2. Tiny bilateral renal calculi. 3. Right lower lobe 3 mm lung nodule. According to the UPDATED 2017 Fleischner Society recommendations, the advised follow-up imaging for solid nodules < 6 mm is: LOW RISK PATIENT: No routine follow-up. HIGH RISK PATIENT: Optional CT at 12 months. DICTATED BY: Sebastian Bolanos MD DATE/TIME DICTATED:05/15/172326 WIRE WRAPPING MACHINE OPERATOR:CHARLIE DATE/TIME TRANSCRIBED:05/15/172326 CONFIDENTIAL, DO NOT COPY WITHOUT APPROPRIATE AUTHORIZATION. <Electronically signed in Other Vendor System> SIGNED BY: Sebastian Bolanos MD 05/15/17 5437 Initial ED EKG: NSR, rate (69), nONSPECIFIC t-WAVE CHANGES IN LEAD III AND V3 Comments: 05/16/2017 12:05:55 AM I have updated KALANI on her test results. She was prescribed Bactrim as a result of her last emergency department visit but was unable to tolerate this. Given the changes on CAT scan I will prescribe Cipro. She has an appointment pending with Dr. Sibley on Tuesday. The patient is currently afebrile and her white blood cell count has remained stable since the end of April. The white cells in the urine have actually improved over the past 3 urinalyses. I do not feel this patient is showing any signs of serious infection or sepsis. I also feel that she is stable for outpatient management with antibiotics and follow up with her urologist. Departure Departure Disposition: HOME OR SELF CARE Condition: Stable Clinical Impression Primary Impression: Hematuria Qualifiers: Hematuria type: unspecified type Qualified Code: R31.9 - Hematuria, unspecified Secondary Impressions: Renal stones Referrals: Lidya Maldonado APRN (PCP/Family) Additional Instructions: Cipro as prescribed for possible infection. Zofran as needed for nausea or vomiting. Follow-up with Dr. Sibley as scheduled on Tuesday. Return if any concerns or sudden worsening. Please note that there might be incidental findings in your evaluation that are unrelated to the current emergency department visit. Please notify your primary care doctor about this emergency department visit in order to obtain and review all of the testing performed so that these incidental findings can be monitored as needed. If you had an x-ray performed, please understand that some fractures may not be seen on the initial set of x-rays. If your symptoms persist you might need a repeat set of x-rays to check for such a fracture. If you had a laceration evaluated, please understand that foreign bodies such as glass or wood may not be visible to the naked eye or on plain x-rays. If the wound becomes red, swollen, increasingly more painful or if there is any drainage from the wound, please have it reevaluated by a physician for the possibility of a retained foreign body. If you're unable to follow up as outlined in the discharge instructions please return to the emergency department. Thank you for choosing the [facility] Emergency Department for your care. It was a pleasure to serve you today. Nahid Hughes M.D. [facility] Departure Forms: Customer Survey General Discharge Information Prescriptions: Current Visit Scripts Ciprofloxacin HCl (Cipro) 1 TAB PO BID #14 TAB Ondansetron (Zofran Odt) 1 TAB SL Q6 PRN NAUSEA/VOMITING #10 TAB
[2017-05-15 23:00] LABS: ABSOLUTE BASOPHIL COUNT 0.1 /CUMM (0.0-0.2); ABSOLUTE GRANULOCYTE CT 9.2 /CUMM (1.4-6.5); ABSOLUTE LYMPH COUNT 4.6 /CUMM (1.2-3.4); ABSOLUTE MONOCYTE COUNT 0.8 /CUMM (0.10-0.60); BASOPHIL % 0.3 % (0.0-2.0); EOSINOPHIL % 12.2 % (0-5); HEMATOCRIT 35.5 % (37-47); MEAN CORPUSCULAR HGB 30.1 PG (27.0-31.0); MEAN CORPUSCULAR HGB CONC 33.6 G/DL (33.0-37.0); MEAN CORPUSCULAR VOLUME 89.7 FL (81.0-99.0); MEAN PLATELET VOLUME 8.6 FL (7.4-10.4); PLATELET COUNT 456 /CUMM (130-400); RBC DISTRIBUTION WIDTH 13.8 % (11.5-14.5); RED BLOOD CELL CT 3.96 /CUMM (4.20-5.40); WHITE BLOOD CELL COUNT 16.8 /CUMM (4.8-10.8)
[2017-05-15 23:09] LABS: GRANULOCYTE % 54.7 % (42.2-75.2)
--- NOTE | 2017-05-15 23:42 | CT SCAN REPORT ---
EXAMINATION: CT ABDOMEN AND PELVIS WITHOUT CONTRAST CLINICAL INFORMATION: Diffuse abdominal pain status post left ureteral stent COMPARISON: 05/09/2017 TECHNIQUE: Multidetector volumetric imaging was performed from the superior aspect of the liver through the pubic symphysis. Sagittal and coronal reformatted images were obtained on the technologist's workstation. DLP: 492.87 mGy-cm FINDINGS: LUNG BASES: There is a 3 mm right middle lobe lung nodule on image 47/792. LIVER, GALLBLADDER, AND BILIARY TREE: The liver is normal in size, shape, and attenuation. No focal hepatic lesion or biliary ductal dilatation is present. The gallbladder is contracted and suboptimally evaluated. PANCREAS: Unremarkable. SPLEEN: Unremarkable. ADRENAL GLANDS: Unremarkable. KIDNEYS AND URETERS: A left ureteral stent is present with the proximal end in the region of the lower pole calyces and distal end in the urinary bladder, similar to prior. No left hydronephrosis. Mild stranding is seen adjacent to some segments of the left ureter which appears new from the prior study. Tiny calculi are noted in the lower pole of the left kidney. No right hydronephrosis. There are several scattered tiny calculi throughout the right kidney. Cortical scarring is noted in the right upper pole, and there is a suspected tiny adjacent renal cyst. BLADDER: Partially distended without wall thickening. There may be a tiny calculus in the left aspect of the bladder near the distal portion of the ureteral stent. GASTROINTESTINAL TRACT: Colonic diverticulosis is noted. The small and large bowel are otherwise unremarkable without evidence of obstruction or pericolonic inflammatory change. The appendix is unremarkable. ABDOMINAL WALL: No significant hernia is appreciated. LYMPH NODES: Normal. VASCULAR: Scattered atherosclerotic calcifications are present. PELVIC VISCERA: There are several scattered calcifications in the uterus consistent with underlying fibroids. OSSEOUS STRUCTURES: Degenerative changes are noted in the spine. IMPRESSION: 1. Left ureteral stent in place, without hydronephrosis. Stranding is present adjacent to some segment of the left ureter which appears new from the prior study, raising concern for inflammation/infection. 2. Tiny bilateral renal calculi. 3. Right lower lobe 3 mm lung nodule. According to the UPDATED 2017 Fleischner Society recommendations, the advised follow-up imaging for solid nodules < 6 mm is: LOW RISK PATIENT: No routine follow-up. HIGH RISK PATIENT: Optional CT at 12 months.
[2017-05-16] MEDS ORDERED: CIPRO500 M1 PO (00:08)
[2017-05-16] MEDS ORDERED: ZOFRAN ODT4 M1 SL (00:08)
[2017-05-16 00:33] VITALS: BP 132/87
== END 2017-05-16 00:39 ==
LOC: ERH 21:05
PROVIDERS: Emergency Medicine
DX: R31.9 Hematuria, unspecified (principal); N20.0 Calculus of kidney; R42 Dizziness and giddiness
CPT/HCPCS: 74176; 81001; 96374; 96375; J0131; J1885; J2405; J7040

== ENCOUNTER → 2017-05-17 | Day surgery (SDC) | payer OTHER ==
[~2017-05-17] VITALS: Ht 165.1 cm; Wt 72.6 kg
[~2017-05-17] MED LIST changes: +CIPRO500 M1 PO; +TRAMADOL HCL50 M1 PO
--- NOTE | 2017-05-17 14:16 | Operative Report ---
Operative/Inv Procedure Report Surgery Date: 05/17/17 Name of Procedure: cysto: left stent removal: right renal ESWL. Pre-Operative Diagnosis: right stone: left stent Post-Operative Diagnosis: same Estimated Blood Loss: scant Surgeon/Hand Painter: Jorge Sibley MD Anesthesia: moderate sedation Specimens: left stent Complications: none Operative/Procedure Note Note: The patient was taken to the operating room placed on the OR table in supine position. Timeout was performed, with the patient awake, in order to confirm correct procedure, laterality, anesthesia, and other pertinent perioperative information. After adequate anesthesia and antibiotics, the patient was then positioned over the ESWL table cutout overlying the treatment dome. Fluoroscopy, using AP and oblique views, as well as renal ultrasound, or performed in order to locate the stone. The position of the RIGHT renal stone was optimized, and positioned in the middle of the ESWL crosshairs. The stone was measured to be approximately 6 mm in size. ESWL was initiated at low power, and after 200 shockwaves delivered , noting the patient's tolerance to the shockwaves, the power was increased to maximum. At the end of 2500 shockwaves, fluoroscopy confirms the change in consistency of the stone, indicating shattering of the stone. The patient was then frog legged, draped and prepped in the usual surgical fashion. 22 German cystoscope sheath with a 30 angle lens was inserted into the bladder without difficulty. The left stent was visualized, and grasped with alligator forceps. The cystoscope along with entire stent was removed without difficulty with fluoroscopic visualization. All sponge needle and instrument count were correct at the end of the case. The patient tolerated the procedures well, and was taken to the recovery room in satisfactory condition. The patient is discharged home with pain medication, and follow-up instructions with in 2-3 weeks' time. Discharge Disposition: Same Day Admissions CC: Jorge Sibley MD
== END ==
LOC: STS 01:59
DX: N20.0 Calculus of kidney (principal); I10 Essential (primary) hypertension; E78.5 Hyperlipidemia, unspecified; F17.200 Nicotine dependence, unspecified, uncomplicated
CPT/HCPCS: J0690

== ENCOUNTER → 2017-05-31 | Day surgery (SDC) | payer OTHER ==
[~2017-05-31] VITALS: Ht 190.5 cm; Wt 79.4 kg
--- NOTE | 2017-06-01 07:29 | Operative Report ---
Operative/Inv Procedure Report Surgery Date: 05/31/17 Name of Procedure: left renal stone eswl, fluoroscopy Pre-Operative Diagnosis: left renal stone Post-Operative Diagnosis: same Estimated Blood Loss: none Surgeon/Medical Health Researcher: Jorge Sibley MD Anesthesia: moderate sedation Specimens: none Complications: none Operative/Procedure Note Note: The patient was taken to the operating room and placed on the ESWL table in supine position. With the patient awake, timeout was performed to confirm correct identity, procedure, laterality, anesthesia, and other pertinent rowdy- operative information. After adequate anesthesia, the patient was positioned so that the patient's left flank was positioned over the table cut-out, overlying the dome of the treatment head. Once the patient was adequately sedated, fluoroscopy, as well as Renal ultrasound was used to locate the LEFT renal stone. Renal US confirmed the presence of the stone which measured it to be approximately 6 mm upper pole stone. The stone was visible with fluoroscopy. Renal US revealed, no hydronephrosis, and no solid tumor, and presence of the stone. The position of the stone was optimized by using fluoroscopy in AP and oblique views;placing the stone within the ESWL c-arm crosshairs. Once the stone's position was optimized , the LEFT renal E.S.W.L. was initiated at low energy level. After noting the patient's tolerance to the shockwaves, the intensitiy was ramped up to maximum level. At the end of the procedure, the left renal stone had dissintegrated. Of note, a total of 2500 shockwaves were delivered to the stone. The patient tolerated the ESWL procedures well, was awakened, then taken to recovery in satisfactory condition via stretcher. The patient was dischared home with pain medications, diet orders, and intructions to catch fragments by straining the urine. The patient to to have follow-up renal ultrasound and KUB in 1 to 2 weeks, prior to follow-up visit in my office. He will then proceed with metabolic stone work-up. Discharge Disposition: Same Day Admissions CC: Jorge Sibley MD
== END ==
LOC: STS 02:15
DX: N20.0 Calculus of kidney (principal); I10 Essential (primary) hypertension; J45.909 Unspecified asthma, uncomplicated
CPT/HCPCS: J2250

== ENCOUNTER 2017-09-20 17:32 | Inpatient (IN) | payer OTHER ==
[~2017-09-20] VITALS: Ht 160 cm; Wt 74.1 kg
[2017-09-20 18:23] LABS: ABSOLUTE BASOPHIL COUNT 0.1 /CUMM (0.0-0.2); ABSOLUTE EOSINOPHIL COUNT 0.5 /CUMM (0.0-0.7); ABSOLUTE GRANULOCYTE CT 8.6 /CUMM (1.4-6.5); ABSOLUTE LYMPH COUNT 3.4 /CUMM (1.2-3.4); ABSOLUTE MONOCYTE COUNT 0.7 /CUMM (0.10-0.60); BASOPHIL % 0.4 % (0.0-2.0); EOSINOPHIL % 3.5 % (0-5); GRANULOCYTE % 65.2 % (42.2-75.2); MEAN CORPUSCULAR HGB 29.4 PG (27.0-31.0); MEAN CORPUSCULAR HGB CONC 32.7 G/DL (33.0-37.0); MEAN CORPUSCULAR VOLUME 89.8 FL (81.0-99.0); MEAN PLATELET VOLUME 9.4 FL (7.4-10.4); PLATELET COUNT 279 /CUMM (130-400); RBC DISTRIBUTION WIDTH 13.1 % (11.5-14.5); RED BLOOD CELL CT 4.45 /CUMM (4.20-5.40); WHITE BLOOD CELL COUNT 13.3 /CUMM (4.8-10.8)
--- NOTE | 2017-09-20 19:59 | ED GI/GU/ABDOMINAL COMPLAINT ---
History of Present Illness General Chief Complaint: General Adult Stated Complaint: RECTAL BLEEEDING, LOWER FLANK PAIN RASH HANDS FEET Source: patient Exam Limitations: no limitations Vital Signs & Intake/Output Vital Signs & Intake/Output Vital Signs Date Time Temp Pulse Resp B/P B/P Pulse O2 O2 Flow FiO2 Mean Ox Delivery Rate 09/21 0811 69 125/72 09/21 0700 97.7 69 18 100/60 97 Room Air 09/21 0214 98.2 59 20 128/76 98 Room Air 09/21 0054 98.1 76 18 118/64 98 Room Air 09/20 2256 98.4 84 18 164/72 98 Room Air 09/20 2116 98.7 84 18 142/62 97 Room Air 09/20 1739 98.0 90 18 128/74 97 Room Air ED Intake and Output 09/21 0000 09/20 1200 Intake Total Output Total Balance Patient 152 lb Weight Allergies Coded Allergies: Sulfa (Sulfonamide Antibiotics) (Mild, ITCHING 05/15/17) codeine (NIGHTMARES 05/13/17) oxycodone (VOMITING 05/13/17) Triage Note: SEVERE ABD PAIN WITH SWEATS AND CHILLS TUESDAY THAT CAUSED HER TO HAVE A BM WITH BLOOD. TWO HOURS LATER WENT TO BATHROOM 2 MORE TIMES WITH BRB. NOW HAVING LEFT FLANK PAIN TODAY AND PELVIC PAIN AND BLOATING. +NAUSEA, +FATIGUE, +DIZZY. DENIES CP/SOB. ALSO C/O RASH TO HANDS Triage Nurses Notes Reviewed? yes ? N Is pt currently ? No Onset: Abrupt Duration: constant Timing: recent history Severity Numbers: 5 Radiation: no radiation HPI: Patient is a 62-year-old female WITH A PMH OF HTN, HLD, anxiety and kidney stones who presents emergency room for concerns of acute onset of right-sided abdominal sharp pain that initially patient thought it was a kidney stone however she had a bowel movement on Tuesday and noted bowel along with significant bright red blood per patient states that since then she's noticed persistent bright red blood with bowel movements patient associated symptoms nausea lightheaded sensation. Abdominal pain has improved however still localized to the left quadrant. Patient can tolerate by mouth Patient has been received colonoscopy (Khurram Arana) Reconcile Medications Albuterol Sulfate (Ventolin Hfa) 18 GM HFA.AER.AD 2 PUF INH Q4-6 PRN PRN SOB Aspirin (Ecotrin*) 81 MG TABLET.DR 1 TAB PO DAILY HEART HEALTH (Reported) Atorvastatin Calcium 20 MG TABLET 1 TAB PO DAILY CHOLESTEROL (Reported) Butalb/Acetaminophen/Caffeine (Efuuqn-Ihcevbrs-Gcaz 50-300-40) 50 MG-300 MG-40 MG CAPSULE 1 TAB PO Q6H PRN VILLAREAL (Reported) Cholecalciferol (Vitamin D3) (Vitamin D) 2,000 UNIT TABLET 1 TAB PO DAILY SUPPLEMENT (Reported) Fluticasone Propionate 50 MCG/ACTUATION SPRAY.SUSP 2 SPRAY NASB PRN ALLERGIES (Reported) Hydroxyzine HCl (hydrOXYzine HCl) 50 MG TABLET 0.5 TAB PO BID ANXIETY ( Reported) Lisinopril 10 MG TABLET 1 TAB PO DAILY BP (Reported) Metformin HCl 500 MG TABLET 0.5 TAB PO BID DM (Reported) Ondansetron (Zofran Odt) 4 MG TAB.RAPDIS 1 TAB SL Q6 PRN NAUSEA/VOMITING Ondansetron (Zofran Odt) 4 MG TAB.RAPDIS 1 TAB SL TID NAUSEA Ondansetron (Zofran Odt) 4 MG TAB.RAPDIS 1 TAB SL TID PRN NAUSEA Pantoprazole Sodium 40 MG TABLET.DR 1 TAB PO DAILY GI (Reported) Quetiapine Fumarate 100 MG TABLET 1 TAB PO QHS MENTAL HEALTH (Reported) Quetiapine Fumarate 25 MG TABLET 1 TAB PO BID MENTAL HEALTH (Reported) Tramadol HCl 50 MG TABLET 1 TAB PO BIDP PRN PAIN Venlafaxine HCl 75 MG TABLET 1 TAB PO BID MENTAL HEALTH (Reported) (Rangel Hayes DO) Past History Travel History Traveled to [place] past 21 day No Medical History Any Pertinent Medical History? see below for history EENT: hearing loss Cardiovascular: hypertension, hyperlipidemia Respiratory: asthma Renal: kidney stone Psychiatric: anxiety, depression Other Medical Hx: Urinary tract infections History of MRSA: No History of VRE: No History of CDIFF: No Surgical History Surgical History: SINUS SURGERY renal stent, lithotripsy Psychosocial History Who do you live with Family Services at Home None What is your primary language Wolof Tobacco Use: Refused to answer Family History Hx Contributory? No (Khurram Arana) Review of Systems Review of Systems Constitutional: Reports: see HPI. EENTM: Reports: no symptoms. Respiratory: Reports: no symptoms. Cardiovascular: Reports: no symptoms. GI: Reports: see HPI, abdominal pain. Genitourinary: Reports: no symptoms. Musculoskeletal: Reports: no symptoms. Skin: Reports: no symptoms. Neurological/Psychological: Reports: no symptoms. Hematologic/Endocrine: Reports: see HPI, bleeding. Immunologic/Allergic: Reports: no symptoms. All Other Systems: Reviewed and Negative (Khurram Arana) Physical Exam Physical Exam General Appearance: anxious Head: atraumatic Eyes: Bilateral: normal appearance. Neck: normal inspection Respiratory: normal breath sounds, chest non-tender Cardiovascular: regular rate/rhythm Gastrointestinal: normal bowel sounds, soft, LEFT UPPER/LOWER QUADRANT PAIN NO REBOUND TENDERNESS Rectal: bloody stool, MILD DIGITAL RECTAL BLOOD NO ACTIVE BLEEDING Neurologic/Psych: no motor/sensory deficits, awake, alert Skin: intact, normal color, warm/dry Core Measures ACS in differential dx? No Sepsis Present: No Sepsis Focused Exam Completed? No (Khurram Arana) Progress Differential Diagnosis: AAA, AMI, appendicitis, biliary colic, bowel obstruction , colon cancer, cholecystitis, diverticulitis, endometritis, esophageal varices, gastritis, hepatitis, hernia, hemorrhoids, ischemic bowel, inflamm bowel dis, kidney stone, ovarian cyst, ovarian torsion, pancreatitis, PID/cervicitis, peptic ulcer, PUD/GERD, perforated viscous, SBO, UTI/pyelo Plan of Care: Orders Procedure Date/time Status Nothing by Mouth 09/21 B Active C.DIFFICILE 09/21 0930 Active Change service to 09/21 0751 Active Change service to 09/21 0735 Active LACTIC ACID 09/21 0622 Complete CBC WITHOUT DIFFERENTIAL 09/21 0600 Active BASIC ELECTROLYTES PLUS BUN&CR 09/21 0600 Complete LDH (LACT ACID DEHYDROGENASE) 09/21 0321 Complete Pathway - chart 09/21 0146 Active House Staff 09/21 0146 Active Code Status 09/21 0146 Active Hemoccult 09/21 0142 Active Weight 09/21 0133 Complete Vital Signs 09/21 0133 Active Teach/Educate 09/21 0133 Active Pain Treatment and Response 09/21 0133 Active Nutritional Intake, Monitor 09/21 0133 Active Isolation 09/21 0133 Active Intake & Output 09/21 0133 Active Patient Care Conference 09/21 0133 Active Activity/Ambulation 09/21 0133 Active VTE Mechanical Prophylaxis 09/21 UNK Active FingerStick- Glucose 09/21 UNK Active Patient Data 09/20 2210 Active ED Holding Orders 09/20 2121 Active Admit to inpatient 09/20 2121 Active Code Status 09/20 2121 Complete Intake & Output 09/20 1740 Active URINALYSIS 09/20 1739 Complete LIPASE 09/20 1739 Complete LACTIC ACID 09/20 1739 Complete COMPREHENSIVE METABOLIC PANEL 09/20 1739 Complete CBC WITHOUT DIFFERENTIAL 09/20 1739 Complete EKG 09/20 1739 Active Current Medications Sig/Eric Start time Last Medication Dose Stop Time Status Admin Diphenhydramine HCl 1 VIOLETA BID 09/21 0933 AC (Benadryl) Atorvastatin Calcium 20 MG DAILY 09/21 0900 AC 09/21 (Lipitor) 0811 Lisinopril 10 MG DAILY 09/21 0900 AC 09/21 (Prinivil) 0811 Ondansetron HCl 4 MG Q6-PRN PRN 09/21 0200 AC 09/21 (Zofran) 0933 Acetaminophen 1,000 MG Q6P PRN 09/21 0145 AC (Ofirmev) Acetaminophen/ 1 TAB DAILY PRN 09/21 0030 AC 09/21 Butalbital/Caffeine 0933 (Fioricet) Albuterol Sulfate 2 PUF Q4-6 PRN PRN 09/21 0030 AC (Ventolin) Fluticasone 2 SPRAY DAILY PRN 09/21 0015 AC Propionate (Flonase) Quetiapine Fumarate 100 MG QPM 09/21 0015 AC 09/21 (Seroquel) 0153 Quetiapine Fumarate 25 MG BID 09/21 0014 AC (Seroquel) Venlafaxine HCl 75 MG BID 09/21 0014 AC 09/21 (Effexor) 0811 Dextrose/Sodium 1,000 ML Q13H 09/20 2315 AC 09/20 Chloride 2325 (D5W-1/2 Normal Saline 1000ML) Laboratory Tests 09/21/17 0642: Lactic Acid 1.4 09/21/17 0642: Anion Gap 12, Estimated GFR > 60, BUN/Creatinine Ratio 23.8, CBC w Diff Pending, WBC Pending, RBC Pending, Hgb Pending, Hct Pending, MCV Pending, MCH Pending, MCHC Pending, RDW Pending, Plt Count Pending, MPV Pending, Gran % Pending, Lymphocytes % Pending, Monocytes % Pending, Eosinophils % Pending, Basophils % Pending, Absolute Granulocytes Pending, Absolute Lymphocytes Pending, Absolute Monocytes Pending, Absolute Eosinophils Pending, Absolute Basophils Pending 09/21/17 0350: Lactate Dehydrogenase 316 09/20/172038: Lactic Acid Cancelled 09/20/17 1808: Urine Color YEL, Urine Clarity CLEAR, Urine pH 6.0, Ur Specific [place] 1.025, Urine Protein 30 H, Urine Ketones NEG, Urine Nitrite NEG, Urine Bilirubin NEG, Urine Urobilinogen 0.2, Ur Leukocyte Esterase SMALL H, Ur Microscopic SEDIMENT EXAMINED, Urine RBC 1-3, Urine WBC 15-25 H, Ur Epithelial Cells MOD H, Urine Crystals 1+ CA OX H, Urine Bacteria FEW H, Hyaline Casts RARE H, Urine Hemoglobin NEG, Urine Glucose NEG 09/20/17 1757: Anion Gap 14, Estimated GFR > 60, BUN/Creatinine Ratio 22.2, Glucose 156 H, Lactic Acid 2.2 H, Calcium 10.2, Total Bilirubin 0.2, AST 25, ALT 33, Alkaline Phosphatase 125, Total Protein 7.9, Albumin 4.2, Globulin 3.7, Albumin/Globulin Ratio 1.1, Lipase 135, CBC w Diff NO MAN DIFF REQ, RBC 4.45, MCV 89.8, MCH 29.4, MCHC 32.7 L, RDW 13.1, MPV 9.4, Gran % 65.2, Lymphocytes % 25.8, Monocytes % 5.1, Eosinophils % 3.5, Basophils % 0.4, Absolute Granulocytes 8.6 H, Absolute Lymphocytes 3.4, Absolute Monocytes 0.7 H, Absolute Eosinophils 0.5, Absolute Basophils 0.1 Microbiology 09/21 0930 STOOL: Clostridium difficile Toxin A & B - ORD Patient does have concerns of bright red blood after digital rectal exam no profuse active bleeding patient was normotensive hemoglobin and hematocrit unremarkable there's concerns of mesenteric ischemia discussed patient with Dr. DELEON was aware of patient's presentation to the emergency room and will consult CT scan was unremarkable There is suspicion of mesenteric ischemia due to elevated lactic acid Patient declines pain medications when offered Diagnostic Imaging: Viewed by Me: CT Scan. Radiology Impression: no acute abnormality, no fracture Initial ED EK bpm Comments: PATIENT: KALANI VEGAS PRESENT AGE: 62 PATIENT ACCOUNT NO: [id number] : 56 LOCATION: [facility] ORDERING PHYSICIAN: Khurram SANTIZO SERVICE DATE: 09/20/17 EXAM TYPE: CAT - CT ABD & PELVIS W IV CONTRAST EXAMINATION: CT ABDOMEN AND PELVIS WITH CONTRAST CLINICAL INFORMATION: Abdominal pain. Rectal bleeding. COMPARISON: 07/09/2017. TECHNIQUE: Contiguous axial thin section helical images of the abdomen and pelvis were performed following the administration of 95 mL of intravenous Optiray 320. The data set was reformatted in the coronal and sagittal planes and reviewed on an independent workstation. DLP: 365 mGy-cm. FINDINGS: There is mild dependent bibasilar atelectasis. The visualized lung bases are otherwise clear. The visualized portions of the heart are unremarkable. The liver is of normal size and attenuation without focal lesions nor intrahepatic biliary ductal dilation. A normal gallbladder is identified. There is no wall thickening or discernible pericholecystic fluid. The spleen, pancreas, adrenal glands are unremarkable. Both kidneys are of normal size and attenuation without hydronephrosis. There is stable right upper pole scarring. There is a nonobstructive 2 mm calculus within the lower pole of the right kidney. Following the administration of IV contrast, prompt symmetric nephrograms are displayed. There is no abdominal free fluid. There is neither mesenteric nor retroperitoneal lymphadenopathy. There is sigmoid diverticulosis without evidence of diverticulitis; otherwise, unremarkable unopacified loops of small and large bowel are identified. In normal appendix is present. There is no pelvic free fluid. Again identified is a calcified myometrial fibroid. The urinary bladder is unremarkable. There is neither pelvic nor inguinal lymphadenopathy. Bone windows: Neither sclerotic nor lytic bone lesions are identified. IMPRESSION: No evidence for acute abdominal or pelvic inflammatory or infectious processes. 2 mm nonobstructive right renal calculus. Sigmoid diverticulosis without evidence of diverticulitis. DICTATED BY: Jamel Rome MD DATE/TIME DICTATED:09/20/172100 FIELD TAX AUDITOR:CHARLIE (Chris SANTIZO,Khurram) Departure Departure Disposition: STILL A PATIENT Condition: Stable Clinical Impression Primary Impression: GI bleed Secondary Impressions: Mesenteric ischemia Referrals: Lidya Maldonado APRN (PCP/Family) Departure Forms: Customer Survey General Discharge Information Admission Note Spoke With: Rosa Maria Austin MD Documentation of Exam: Documentation of any treatments & extenuating circumstances including Concerns Regarding Discharge (functional status, medication knowledge or non-compliance, living conditions, etc.) that warrant an admission rather than observation: [ Patient requires repeat labs gastroenterology consultation and possible colonoscopy for persistent GI bleed] (Khurram Arana) PA/[employer]YWALL PROFESSIONAL Co-Sign Statement Statement: ED Attending supervision documentation- [] I saw and evaluated the patient. I have also reviewed all the pertinent lab results and diagnostic results. I agree with the findings and the plan of care as documented in the PA's/DRYWALL PROFESSIONAL's documentation. [X] I have reviewed the ED Record and agree with the PA's/DRYWALL PROFESSIONAL's documentation. [] Additions or exceptions (if any) to the PAs/DRYWALL PROFESSIONAL's note and plan are summarized below: [] (Rangel Hayes DO)
--- NOTE | 2017-09-20 21:09 | CT SCAN REPORT ---
EXAMINATION: CT ABDOMEN AND PELVIS WITH CONTRAST CLINICAL INFORMATION: Abdominal pain. Rectal bleeding. COMPARISON: 07/09/2017. TECHNIQUE: Contiguous axial thin section helical images of the abdomen and pelvis were performed following the administration of 95 mL of intravenous Optiray 320. The data set was reformatted in the coronal and sagittal planes and reviewed on an independent workstation. DLP: 365 mGy-cm. FINDINGS: There is mild dependent bibasilar atelectasis. The visualized lung bases are otherwise clear. The visualized portions of the heart are unremarkable. The liver is of normal size and attenuation without focal lesions nor intrahepatic biliary ductal dilation. A normal gallbladder is identified. There is no wall thickening or discernible pericholecystic fluid. The spleen, pancreas, adrenal glands are unremarkable. Both kidneys are of normal size and attenuation without hydronephrosis. There is stable right upper pole scarring. There is a nonobstructive 2 mm calculus within the lower pole of the right kidney. Following the administration of IV contrast, prompt symmetric nephrograms are displayed. There is no abdominal free fluid. There is neither mesenteric nor retroperitoneal lymphadenopathy. There is sigmoid diverticulosis without evidence of diverticulitis; otherwise, unremarkable unopacified loops of small and large bowel are identified. In normal appendix is present. There is no pelvic free fluid. Again identified is a calcified myometrial fibroid. The urinary bladder is unremarkable. There is neither pelvic nor inguinal lymphadenopathy. Bone windows: Neither sclerotic nor lytic bone lesions are identified. IMPRESSION: No evidence for acute abdominal or pelvic inflammatory or infectious processes. 2 mm nonobstructive right renal calculus. Sigmoid diverticulosis without evidence of diverticulitis.
--- NOTE | 2017-09-20 22:40 | History & Physical ---
Juan Sullivani 09/20/17 2239: General Information and HPI MD Statement: I have seen and personally examined KALANI LIZ and documented this H&P. The patient is a 62 year old F who presented with a patient stated chief complaint of []. Source of Information: patient Exam Limitations: no limitations History of Present Illness: 62 yo Female with past medical history significant for Hypertension, DM, asthma, anxiety and nephrolithiasis presents to the ER with complaints of bleeding from the rectum and abdominal cramping. Her symtopms started 3 days ago when she had two frankly bloody red stools accompanied by severe abdominal cramping. The cramping began in the left upper quadrant and gradually became difuse. The patient attributed her symtoms to Kidney stones and took 4 tablets of Advil. She continues to have blood in the stool but reports that her cramping is relieved with her taking Advil PRN. Her symptoms were accomapnied by fever and chills on Tuesday but she has not had them since. She also complains feeling bloated for the past 3 days. She has been feeling nauseaous but denies having vomited. She does feel her appetite has been failing her since her symptoms started. She also complains of an episode of burning mictiuration which she 'assumes' was due to passage of one of her kidney stones. She denies constipation. She denies any recent tarvel. She states she has not had such symtoms in the past. Allergies/Medications Allergies: Coded Allergies: Sulfa (Sulfonamide Antibiotics) (Mild, ITCHING 05/15/17) codeine (NIGHTMARES 05/13/17) oxycodone (VOMITING 05/13/17) Home Med list Albuterol Sulfate (Ventolin Hfa) 18 GM HFA.AER.AD 2 PUF INH Q4-6 PRN PRN SOB Aspirin (Ecotrin*) 81 MG TABLET. 1 TAB PO DAILY HEART HEALTH (Reported) Atorvastatin Calcium 20 MG TABLET 1 TAB PO DAILY CHOLESTEROL (Reported) Butalb/Acetaminophen/Caffeine ([place]-Urmvrobj-Zynn 50-300-40) 50 MG-300 MG-40 MG CAPSULE 1 TAB PO Q6H PRN VILLAREAL (Reported) Cholecalciferol (Vitamin D3) (Vitamin D) 2,000 UNIT TABLET 1 TAB PO DAILY SUPPLEMENT (Reported) Emollient Combination No.92 (Lubriderm Daily Moisture) 177 ML LOTION 1 VIOLETA TOP TID PRN DRY SKIN Fluticasone Propionate 50 MCG/ACTUATION SPRAY.SUSP 2 SPRAY NASB PRN ALLERGIES (Reported) Hydroxyzine HCl (hydrOXYzine HCl) 50 MG TABLET 0.5 TAB PO BID ANXIETY ( Reported) Lisinopril 10 MG TABLET 1 TAB PO DAILY BP (Reported) Metformin HCl 500 MG TABLET 0.5 TAB PO BID DM (Reported) Ondansetron (Zofran Odt) 4 MG TAB.RAPDIS 1 TAB SL TID NAUSEA Pantoprazole Sodium 40 MG TABLET.DR 1 TAB PO DAILY GI (Reported) Polycarbophil (Fiber) 625 MG TABLET 1,250 MG PO BID Fiber supplement . Quetiapine Fumarate 100 MG TABLET 1 TAB PO QHS MENTAL HEALTH (Reported) Quetiapine Fumarate 25 MG TABLET 1 TAB PO BID MENTAL HEALTH (Reported) Tramadol HCl 50 MG TABLET 1 TAB PO BIDP PRN PAIN Triamcinolone Acetonide 0.1 % OINT...G. 1 VIOLETA TOP BID ECZEMA APPLY TO AFFECTED AREA Venlafaxine HCl 75 MG TABLET 1 TAB PO BID MENTAL HEALTH (Reported) Past History Travel History Traveled to [place] past 21 day No Medical History EENT: hearing loss Cardiovascular: hypertension, hyperlipidemia Respiratory: asthma Renal: kidney stone Psychiatric: anxiety, depression Other Medical Hx: Urinary tract infections History of MRSA: No History of VRE: No History of CDIFF: No Surgical History Surgical History: SINUS SURGERY renal stent, lithotripsy Past Family/Social History Psychosocial History Services at Home: None Primary Language: Romanian Smoking Status: Current Everyday Smoker ETOH Use: denies use Illicit Drug Use: denies illicit drug use Functional Ability Ambulation: independent Review of Systems Review of Systems Constitutional: Reports: no symptoms, malaise. Denies: chills, fever, unexplained weight loss. EENTM: Reports: no symptoms. Cardiovascular: Reports: no symptoms. Respiratory: Reports: no symptoms. GI: Reports: see HPI, abdominal pain, bloating, nausea, bloody stool, changes in stool. Genitourinary: Reports: no symptoms, dysuria. Denies: frequency, hematuria. Musculoskeletal: Reports: no symptoms. Skin: Reports: rash (rash on hands and feet). Neurological/Psychological: Reports: anxiety. Denies: confusion, depressed, dementia, headache, numbness. Hematologic/Endocrine: Reports: no symptoms. Exam & Diagnostic Data Last 24 Hrs of Vital Signs/I&O Vital Signs Date Time Temp Pulse Resp B/P B/P Pulse O2 O2 Flow FiO2 Mean Ox Delivery Rate 09/21 0214 98.2 59 20 128/76 98 Room Air 09/21 0054 98.1 76 18 118/64 98 Room Air 09/20 2256 98.4 84 18 164/72 98 Room Air 09/20 2116 98.7 84 18 142/62 97 Room Air 09/20 1739 98.0 90 18 128/74 97 Room Air Intake & Output 09/21 0800 09/21 0000 09/20 1600 Intake Total Output Total Balance Patient 163 lb 152 lb Weight Weight Bed scale Measurement Method Physical Exam General Appearance Alert, Oriented X3, Cooperative, No Acute Distress Skin diffuse itchy erythematous rash on palms and feet HEENT Atraumatic, PERRLA, Mucous Membr. moist/pink Neck Supple Cardiovascular Regular Rate, Normal S1, Normal S2, No Murmurs Lungs Clear to Auscultation, Normal Air Movement Abdomen Normal Bowel Sounds, Soft, Abdomen tender to palpation on the right upper and middle quadrants. Patient deferred palpation of left upper quadrant due to pain. Extremities No Clubbing, No Cyanosis, No Edema, Normal Pulses Assessment/Plan Assessment: Here is a 62 yo Female with past medical history significant for Hypertension, asthma, DM, nephrolithiasis, anxiety and depression presents to the ER with a 3 day history of bleeding per rectum accomapanied with severe cramping. Her cramping has been relieved since but she continues having at least two bowel movments with bright red blood in stool everyday. She complains feeling nauseous and bloated with loss of appetite. She had fever and chills on Staurday but has not had them since possibly because she has been prophylactically taking Advil for her pain. She denies vomiting, constipation or any recent travel history. Her blood work was significant for a white blood count of 13.3, BUN of 20 and lactic acid of 2.2. Her Hb is currently stable at 13.3. An abdominal CT was unremarkable except for renal calculus in the right kidney. We are admitting the patient to the floors owing to the following problems: 1. GI Bleed -Bright red blood in the stool for the past 3 days -accomapnied with severe abdominal cramping -monitor Hemodyanmic parameters -hold Aspirin till further notice -keep the patient NPO -stool culture -Gastroentrology consult 2. Nephrolithiasis -Patient was previously admitted for obstructive nephrolithaisis leading to urosepsis and subsequently followed with for ESWL and stent placement -reports an episode of burning micturation on 09/17 -reports severe left flank pain -CT scan shows calculi in the right kidney -would keep her hydrated -no other active intervention at this time 3. Eczema -Pt has bilateral itchy rash on both her palms and feet -Order Benadryl PRN DVT prophylaxis with bilateral compression devices FULL CODE As Ranked By This Provider Problem List: 1. Abdominal pain 2. Asthma 3. GI bleed 4. Renal calculi 5. Hypertension Core Measures/Misc (11/21) Acute Coronary Syndrome ACS Diagnosis: No Congestive Heart Failure Congestive Heart Failure Diagnosis No Cerebrovascular Accident CVA/TIA Diagnosis: No VTE (View Protocol) VTE Risk Factors Age>40 No Mechanical VTE Prophylaxis d/t N/A MechProphylax Ordered No VTE Pharm Prophylaxis d/t NA PharmProphylax ordered Sepsis (View protocol) Sepsis Present: Yes If YES complete Sepsis Event Note If YES complete Sepsis Event Note Rosa Maria Austin MD 09/20/17 2243: Core Measures/Misc (11/21) Sepsis (View protocol) If YES complete Sepsis Event Note If YES complete Sepsis Event Note Attending MD Review Statement Attending Statement Attending MD Statement: examined this patient, discuss w/resident/PA/CURRICULUM ASSISTANT PRINCIPAL, agreed w/resident/PA/CURRICULUM ASSISTANT PRINCIPAL, reviewed EMR data (avail), discussed with nursing, amended to note Attending Assessment/Plan: 62-year-old female with history of hypertension, diabetes mellitus and nephrolithiasis presents to the emergency room with complaints of bright red blood per rectum. She reports symptoms of been going on for the past 3 days. She admits to associated abdominal cramping which had initially attributed to her renal stones. While CT scan does show renal stones it is on the right side where she has been complaining predominantly of left flank pain. The stone is also not obstructing. No other abdominal pathologies were identified. She denies any constipation or straining during defecation. She actually reports loose bowel movements on occasion. She arrived emergency room hemodynamically stable. On examination abdomen is nondistended soft and nontender with normal bowel sounds. She does have significant left CVA tenderness but states that this is baseline for her. Hemoglobin level is stable at 13.1 with hematocrit of 40.0. BUN is well elevated at 20. She does have a lactic acid level of 2.2. Problems: 1. Lower gastrointestinal bleeding 2. Ido-qxvuhcw-vyimymvjb diabetes mellitus 3. Hypertension 4. Nephrolithiasis Plan: -Admit to inpatient medical service. -Keep n.p.o. Hydrate with D5 half normal saline at 75 cc an hour. -Hold aspirin. -DVT prophylaxis with bilateral compression devices. -Hold her oral hypoglycemic agents. Continue her antihypertensive medications. -Gastroenterology consultation. America Perez MD 09/20/17 2312: Core Measures/Misc (11/21) Sepsis (View protocol) If YES complete Sepsis Event Note If YES complete Sepsis Event Note Resident Review Statement Resident Statement: examined this patient, discussed with cisco certified internetwork expert, agreed with cisco certified internetwork expert, discussed with family, reviewed EMR data (avail), discussed with nursing , reviewed images Other Findings: Ms. Liz is 62-year-old female with PMH of HTN, HLP, asthma, anxiety, depression, ?use of nocturnal CPAP, recently admitted to [facility] in Apr for urosepsis 2/2 to obstructive nephropathy presented to ED with chief complaint Rectal bleeding and left flank pain. According to patient, she was in her usual state of Tuesday and she started having left flank pain which was sharp and 10/10 in intensity. She went to the bathroom because she felt she needs to have a bowel movement but noted bright red blood along with the bowel movement. She reports 2 episodes of BRBPR every day since Tuesday. Her abdominal pain is better compared to before but continues to be there now in bilateral lower quadrants, 5/10 in intensity and she feels bloated. She feels like she has passed kidney stone on Tuesday because reports an episode of burning with urination and also her pain got better afterwards. She has been taking Advil 600 mg almost 3 times a day since Tuesday because she does not want to experience the abdominal pain. Patient also endorses nausea but denies any episodes of vomiting. He has never had a colonoscopy in the past because she was not able to undergo the prep. Vitals on admission were Temp 98.0, HR 90, RR 18, BP 128/74 and O2 sat 97% on Room Air. Labs; significant for WBC of 13.3, H&H 13.1/40.0, BUN/creatinine 20/0.9, blood glucose 156, lactic acid 2.2. UA negative. CT ABd and pelvis negative for any acute pathology. Showed sigmoid diverticulosis without evidence of diverticulitis. Problem List; 1. GI Bleed 2. Lactic Acidosis 3. Leukocytosis, unclear etiology - Admit the Patient to Gen med Floor - Keep patient NPO for possibe scope in am - GI consult - Trend lactic acid. - Gentle IV fluids with D5 half normal saline. - Zofran as needed for nausea - Repeat CBC in a.m. - Hold metformin, but apparently patient has not been taking metformin at home either. Start the patient on NovoLog sliding scale depending on Accu-Cheks. - Continue home medications. DVT prophylaxis; Alps only(GI bleed) Patient is full code
[2017-09-21 02:14] VITALS: BP 128/76
[2017-09-21 07:00] VITALS: BP 100/60
[2017-09-21 08:03] LABS: ABSOLUTE BASOPHIL COUNT 0 /CUMM (0.0-0.2); ABSOLUTE EOSINOPHIL COUNT 0.4 /CUMM (0.0-0.7); ABSOLUTE GRANULOCYTE CT 8.6 /CUMM (1.4-6.5); ABSOLUTE LYMPH COUNT 3.2 /CUMM (1.2-3.4); ABSOLUTE MONOCYTE COUNT 0.9 /CUMM (0.10-0.60); BASOPHIL % 0.3 % (0.0-2.0); EOSINOPHIL % 3.1 % (0-5); GRANULOCYTE % 65.6 % (42.2-75.2); MEAN CORPUSCULAR HGB 29.8 PG (27.0-31.0); MEAN CORPUSCULAR HGB CONC 33.4 G/DL (33.0-37.0); MEAN CORPUSCULAR VOLUME 89.3 FL (81.0-99.0); MEAN PLATELET VOLUME 9.3 FL (7.4-10.4); PLATELET COUNT 264 /CUMM (130-400); RBC DISTRIBUTION WIDTH 12.8 % (11.5-14.5); RED BLOOD CELL CT 3.82 /CUMM (4.20-5.40); WHITE BLOOD CELL COUNT 13.1 /CUMM (4.8-10.8)
[2017-09-21 08:48] LABS: HEMATOCRIT 34.1 % (37-47)
--- NOTE | 2017-09-21 09:29 | PN- Housestaff ---
See Addendum Subjective Follow-up For: Bloody stools Subjective: Patient had multiple episodes of watery diarrhea, no blood was seen. Patient denies back denies blood in stool denies fevers chills night sweats. Patient is also complaining of a rash her feet and palms, complains that it is very itchy. Patient states she has been having this rash for over 4 years it comes and goes last time again was a couple months ago and saw PCP Lidya who prescribed hydrocortisone cream which patient states causes a sensation. Review of Systems Constitutional: Denies: chills, diaphoresis, fever. Objective Last 24 Hrs of Vital Signs/I&O Vital Signs Date Time Temp Pulse Resp B/P B/P Pulse O2 O2 Flow FiO2 Mean Ox Delivery Rate 09/21 0811 69 125/72 09/21 0700 97.7 69 18 100/60 97 Room Air 09/21 0214 98.2 59 20 128/76 98 Room Air 09/21 0054 98.1 76 18 118/64 98 Room Air 09/20 2256 98.4 84 18 164/72 98 Room Air 09/20 2116 98.7 84 18 142/62 97 Room Air 09/20 1739 98.0 90 18 128/74 97 Room Air Intake & Output 09/21 1600 18 0800 09/21 0000 Intake Total 455 Output Total Balance 455 Intake, IV 395 Intake, Oral 60 Number 3 Bowel Movements Patient 163 lb 152 lb Weight Weight Bed scale Measurement Method Physical Exam General Appearance: Alert, Oriented X3, Cooperative Skin: Pruritic, slightly raised rash on palms and soles , no vesicles or plaques presnt HEENT: Atraumatic, EOMI Neck: Supple Cardiovascular: Regular Rate, Normal S1, Normal S2 Lungs: Clear to Auscultation, Normal Air Movement Abdomen: Normal Bowel Sounds, Soft, No Tenderness, No Hepatospenomegaly Extremities: No Cyanosis, No Edema, Normal Pulses Assessment/Plan Assessment: 62 yo Female with past medical history significant for Hypertension, DM, asthma, anxiety and nephrolithiasis presents to the ER with complaints of bleeding from the rectum and abdominal cramping. Patient has 2 episodes of passing stool with fresh blood on tuesday along with LLQ pain. Problem List: 1. Bloody Stools 2. Eczema 3. Diarrhea 4. Hyperlipidemia 5. Hypertension #Bloody Stools: Possible etiology: diverticulosis vs ichemia colitis vs hemerroids. Abdo CT on 09/20/17 showed Sigmoid Diverticulosis Plan: - GI Consult - Will start clear liquid diet, and advance as tolerated #Eczema: affecting both hands and feet Plan: -Triamcinolone 0.1% -Lubiderm Lotion -Benadryl #Diarrhea: Plan -C.diff #Hyperlipidemia plan -Atorvastatin 20mg Hypertension: plan -Lisinopril 10mg Problem List: 1. Bloody stool Pain Ratin Pain Location: n/a Pain Goal: Remain pain free Pain Plan: tylenol Tomorrow's Labs & Rationales: CBC
[2017-09-21 14:41] VITALS: BP 116/69
--- NOTE | 2017-09-21 15:20 | Cons- Gastroenterology ---
General Information and HPI Consulting Request Date of Consult: 09/21/17 Requested By: Jamel Mccollum MD Reason for Consult: I was notified this morning of a request by the hospitalist service to assess rectal bleeding. Source of Information: patient, old records Exam Limitations: [place], natalie historian, anxiety History of Present Illness: 62 y/o female from [place] (speaks Bulgarian fairly well), HTN, DM, HLD, anxiety, depression, [place], asthma, eczema, smoker, nephrolithiasis (Ca carbonate ), past hx E. Coli urosepsis 04/2017, at which point, the patient had YOEL & numerous cystoscopies/ESWL for B/L renal stones & basket extraction of left UVJ stone, with left ureteral stent. She presented to the [facility] 09/20/17 at 5:32 p.m., reportedly with abdominal pain (*which the patient currently denied), diaphoresis, & chills a few days [employer] , without any fevers. At that time, she had a brown bowel movement, mixed with bright red blood x 2. This recurred again 1 day later. There was no spontaneous LGI bleeding or melena. she also had left flank pain on 09/20/17, similar to her renal colic. There was no CP or SOB. There was some mild dizziness. There was no LOC. She denied having any previous colonoscopy. There is no FHx GI Ca or IBD. She noted GERD, without hematemesis, odynophagia, or dysphagia. She denied any prior abdominal surgery. She remotely had sinus surgery. She had no diarrhea prior to admission. After admission, she had watery diarrhea,without any constipation, obstipation, change in stool caliber, or tenesmus. Her last antibiotics were given in 05/2017, for urologic reasons. She was last out of the [facility] in 2017, when she went to [place]. The patient is postmenopausal since age 59, with occasional night sweats. She denied any vaginal spotting or gross hematuria. She denied any sx UTI or URI. She denied any weight loss or jaundice. Her appetite was mildly decreased [employer]. There has been no recurrent rectal bleeding since admission. She had no rashes, aside from her eczema, nor acute arthralgias. She has a history of "hemorrhoids ". Upon arrival, BP 120/74, P 90, R 18, T 98, O2 sat RA 97%. She was treated with IV NS. *She had very stable labs on admission, but was probably hemoconcentrated , as her baseline HCT is in the mid 30's. She also had Fatigue & a mild headache, for which she took a few Advil daily for the past few days [employer]. She was also on Ecotrin. There were no documented prior blood transfusions in the [employer] computer. 09/20/17: CTAP with IV contrast-no acute GI pathology nor colitis, just sigmoid diverticulosis without diverticulitis, uterine fibroid, 2 mm nonobstructing right renal stone & bibasilar atelectasis. 09/20/17: Admission labs 1757-WBC 13.3 (65% gran/9 gran Ab), *H/H 13.1/40, MCV 89.8, RDW 13.1, PLT 279, glucose 156, BUN/Cr 20/0.9, GFR > 60, Na 143, K 4.2, HCO3 25, AG 14, lactate 2.2, lipase 135, Ca 10.2, albumin 4.2, globulin 2.7, TBil 0.2, alk phos 125, AST 25, ALT 33 (no coags). 09/20/17: U/A- clear, yellow, 1.025, 6.0, 15-25 WBC, rare hyaline casts, Ca ox crystals, few bact, mod epith, 30+ prot; micro- otherwise negative, small esterase, negative nitrite. 09/21/17: stool C. diff- pending. 09/21/17: 0642-WBC 13.1, H/H 11.4/34.1 (post IVF, *which is about baseline HCT), PLT 264, BUN/Cr 19/0.8, GFR > 60, Na 141, K 4.2, HCO3 20, AG 12, lactate 1.4, LDH 316. 09/20/17: EKG- NSR @ 90, nl axis, nl intervals, NSST, PRWP. 09/21/17: CT ABD & PELVIS W IV CONTRAST- No evidence for acute abdominal or pelvic inflammatory or infectious processes. 2 mm nonobstructive right renal calculus. Sigmoid diverticulosis without evidence of diverticulitis. Normal AP & GB. Calcified fibroid. Bibasilar atelectasis. Allergies/Medications Allergies: Coded Allergies: Sulfa (Sulfonamide Antibiotics) (Mild, ITCHING 05/15/17) codeine (NIGHTMARES 05/13/17) oxycodone (VOMITING 05/13/17) Home Med List: Albuterol Sulfate (Ventolin Hfa) 18 GM HFA.AER.AD 2 PUF INH Q4-6 PRN PRN SOB Aspirin (Ecotrin*) 81 MG TABLET.DR 1 TAB PO DAILY HEART HEALTH (Reported) Atorvastatin Calcium 20 MG TABLET 1 TAB PO DAILY CHOLESTEROL (Reported) Butalb/Acetaminophen/Caffeine (Unudpn-Cyfidlvn-Aluy 50-300-40) 50 MG-300 MG-40 MG CAPSULE 1 TAB PO Q6H PRN VILLAREAL (Reported) Cholecalciferol (Vitamin D3) (Vitamin D) 2,000 UNIT TABLET 1 TAB PO DAILY SUPPLEMENT (Reported) Fluticasone Propionate 50 MCG/ACTUATION SPRAY.SUSP 2 SPRAY NASB PRN ALLERGIES (Reported) Hydroxyzine HCl (hydrOXYzine HCl) 50 MG TABLET 0.5 TAB PO BID ANXIETY ( Reported) Lisinopril 10 MG TABLET 1 TAB PO DAILY BP (Reported) Metformin HCl 500 MG TABLET 0.5 TAB PO BID DM (Reported) Ondansetron (Zofran Odt) 4 MG TAB.RAPDIS 1 TAB SL Q6 PRN NAUSEA/VOMITING Ondansetron (Zofran Odt) 4 MG TAB.RAPDIS 1 TAB SL TID NAUSEA Ondansetron (Zofran Odt) 4 MG TAB.RAPDIS 1 TAB SL TID PRN NAUSEA Pantoprazole Sodium 40 MG TABLET.DR 1 TAB PO DAILY GI (Reported) Quetiapine Fumarate 100 MG TABLET 1 TAB PO QHS MENTAL HEALTH (Reported) Quetiapine Fumarate 25 MG TABLET 1 TAB PO BID MENTAL HEALTH (Reported) Tramadol HCl 50 MG TABLET 1 TAB PO BIDP PRN PAIN Venlafaxine HCl 75 MG TABLET 1 TAB PO BID MENTAL HEALTH (Reported) Current Medications: Current Medications Sig/Eric Start time Last Medication Dose Route Stop Time Status Admin Acetaminophen 650 MG Q6PRN PRN 09/21 0145 DC PO Acetaminophen 1,000 MG Q6P PRN 09/21 0145 AC 09/21 IV 1405 Acetaminophen 0 .STK-MED ONE 09/20 2318 DC PO Acetaminophen 650 MG ONCE ONE 09/20 2315 DC 09/20 PO 09/20 2316 2325 Acetaminophen/ 1 TAB DAILY PRN 09/21 0030 AC 09/21 Butalbital/Caffeine PO 0933 Albuterol Sulfate 2 PUF Q4-6 PRN PRN 09/21 0030 AC INH Atorvastatin Calcium 20 MG DAILY 09/21 0900 AC 09/21 PO 0811 Dextrose/Sodium 1,000 ML Q13H 09/21 2355 AC Chloride IV Dextrose/Sodium 1,000 ML Q13H 09/20 2315 AC 09/21 Chloride IV 1207 Diphenhydramine HCl 25 MG ONCE ONE 09/21 1145 DC 09/21 IV 09/21 1146 1208 Diphenhydramine HCl 1 VIOLETA BID 09/21 0933 DC TOP Fluticasone 2 SPRAY DAILY PRN 09/21 0015 AC Propionate RONNY Glycerin/Mineral Oil 1 VIOLETA TID PRN 09/21 1145 AC TOP Insulin Human Regular 0 Q6 09/21 2359 AC SC Lisinopril 10 MG DAILY 09/21 0900 AC 09/21 PO 0811 Ondansetron HCl 4 MG Q6P PRN 09/21 1100 AC IV Ondansetron HCl 4 MG Q6-PRN PRN 09/21 0200 DC 09/21 PO 0933 Quetiapine Fumarate 100 MG QPM 09/21 0015 AC 09/21 PO 0153 Quetiapine Fumarate 25 MG BID 09/21 0014 AC PO Sodium Chloride 1,000 ML BOLUS ONE 09/20 2115 DC 09/20 IV 09/20 2214 2126 Triamcinolone 1 VIOLETA BID 09/21 1135 AC 09/21 Acetonide TOP 1405 Venlafaxine HCl 75 MG BID 09/21 0014 AC 09/21 PO 0811 Past History Travel History Traveled to [place] past 21 day No Medical History Blood Transfusion Hx: No Neurological: NONE EENT: hearing loss Cardiovascular: hypertension, hyperlipidemia Respiratory: asthma Gastrointestinal: NONE Hepatic: NONE Renal: kidney stone, UTI Musculoskeletal: NONE Psychiatric: anxiety, depression Endocrine: NIDDM Blood Disorders: anemia (mild (baseline)) Cancer(s): NONE 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 MOTHER ([employer]). Psychosocial History Where Do You Live? Home Who Do You Live With? child (4 kids) Services at Home: None Primary Language: Bulgarian (& Bulgarian), Turkish Smoking Status: Current Everyday Smoker ETOH Use: denies use Illicit Drug Use: denies illicit drug use Living Will? no Power of Endoscopy Tech/HCP? no Other Social History: Single. Lives with her 4 children. Cigarette smoker . Denies EtOH or illicit drugs. Unemployed. "Disabled- [place]". Functional Ability ADLs Independent: dressing, eating, toileting, bathing. Ambulation: independent IADLs Independent: shopping, housework, finances, food prep, telephone, transportation , medication admin. Employment History Employment: Disability Review of Systems Review of Systems: Full 14 point ROS otherwise noncontributory, and as above Review of Systems Constitutional: Reports: chills, diaphoresis. Denies: fever, malaise, weakness, unexplained weight loss. EENTM: Reports: hearing changes. Denies: blurred vision, double vision, visual changes , eye pain, eye drainage, eye tearing, icterus, ear discharge, ear pain, ear redness, nasal congestion, epistaxis, nasal pain, throat pain, throat swelling, mouth pain, tooth pain. Cardiovascular: Denies: chest pain, edema, orthopena, palpitations, peripheral edema, syncope. Respiratory: Denies: cough, hemoptysis, orthopnea, short of breath, sputum production, stridor, wheezing. GI: Reports: bloody stool. Denies: abdominal pain, bloating, constipation, diarrhea , distention, bowel incontinence, melena, nausea, changes in stool, vomiting, steatorrhea. Genitourinary: Denies: discharge, dysuria, frequency, hematuria, hesitation, nocturia, pain, urgency. Musculoskeletal: Denies: back pain, gout, joint pain, joint swelling, muscle pain, muscle stiffness, neck pain. Skin: Reports: rash (eczema). Denies: cysts, change in skin color, change in hair/ nails, dryness, erythema, jaundice, lesions, lymphangitis, lumps, moles. Neurological/Psychological: Reports: anxiety, depressed, emotional problems. Denies: ataxia, cognitive dysfunction, confusion, dementia, headache, numbness, paresthesia, pre-existing deficit, petit mal seizures, tingling, tremors, tonic-clonic seizures, unable to move lower ext, unable to move upper ext, weakness. Hematologic/Endocrine: Denies: bruising, bleeding, polyuria, polydipsia. Immunologic/Allergic: Denies: splenectomy, HIV/AIDS, lymphadenopathy. All Other Systems: Reviewed and Negative Exam & Diagnostic Data Vital Signs and I&O Vital Signs Date Time Temp Pulse Resp B/P B/P Pulse O2 O2 Flow FiO2 Mean Ox Delivery Rate 09/21 1441 97.3 65 18 116/69 96 Room Air 09/21 0811 69 125/72 09/21 0700 97.7 69 18 100/60 97 Room Air 09/21 0214 98.2 59 20 128/76 98 Room Air 09/21 0054 98.1 76 18 118/64 98 Room Air 09/20 2256 98.4 84 18 164/72 98 Room Air 09/20 2116 98.7 84 18 142/62 97 Room Air 09/20 1739 98.0 90 18 128/74 97 Room Air Intake & Output 09/21 1600 09/21 0400 09/20 1600 09/20 0400 09/19 1600 09/19 0400 Intake Total 1255 Output Total 250 Balance 1005 Intake, IV 1195 Intake, Oral 60 Number 3 Bowel Movements Output, Stool 250 Patient 163 lb Weight Weight Bed scale Measurement Method Physical Exam: Well-developed, well-nourished, slightly obese female, somewhat anxious, in no apparent distress. Sclera anicteric. Conjunctiva pink. Oropharynx clear. No oral thrush. No aphthous ulcers. There is no adenopathy, thyromegaly, or JVD. No peripheral stigmata of inflammatory bowel disease or chronic liver disease on exam. No spiders on the anterior chest wall. Breast & pelvic exams: API. No CVA tenderness. No spine tenderness. Lungs: clear to A&P, with slight decreased breath sounds at the bases B/L. No wheezing, rales, or rhonchi. Heart exam: regular rate rhythm, S1 and S2, without any murmur. Abdominal exam: normal bowel sounds, soft, mildly obese belly, nontender, without guarding or rebound. No mass. No organomegaly. No fluid shift. No pulsatile mass. No epigastric bruit. Digital rectal exam: refused by patient (deferred by her for colonoscopy, when she is sedated). *A digital rectal exam was done on admission in the ER by DARLYN Burgess, revealing "a small amount of BRB". Extremities: without C, C, or E. Mild DJD. Tattoos. Eczema. No palpable cords. No palmar erythema. No Dupuytren's contractures. Distal pulses 2+ bilaterally. DTRs 2+ bilaterally. Right handed. Motor 5/5 B/L. CN II-XII intact. Alert and oriented x 3. No tremor. No asterixis. Results Pertinent Lab Results: Laboratory Tests 09/21 09/21 09/21 0642 0642 0350 Chemistry Sodium (137 - 145 mmol/L) 141 Potassium (3.5 - 5.1 mmol/L) 4.2 Chloride (98 - 107 mmol/L) 108 H Carbon Dioxide (22 - 30 mmol/L) 20 L Anion Gap (5 - 16) 12 BUN (7 - 17 mg/dL) 19 H Creatinine (0.5 - 1.0 mg/dL) 0.8 Estimated GFR (>60 ml/min) > 60 BUN/Creatinine Ratio (7 - 25 %) 23.8 Lactic Acid (0.7 - 2.1 mmol/L) 1.4 Lactate Dehydrogenase (313 - 618 U/L) 316 Hematology CBC w Diff NO MAN DIFF REQ WBC (4.8 - 10.8 /CUMM) 13.1 H RBC (4.20 - 5.40 /CUMM) 3.82 L Hgb (12.0 - 16.0 G/DL) 11.4 L Hct (37 - 47 %) 34.1 L MCV (81.0 - 99.0 FL) 89.3 MCH (27.0 - 31.0 PG) 29.8 MCHC (33.0 - 37.0 G/DL) 33.4 RDW (11.5 - 14.5 %) 12.8 Plt Count (130 - 400 /CUMM) 264 MPV (7.4 - 10.4 FL) 9.3 Gran % (42.2 - 75.2 %) 65.6 Lymphocytes % (20.5 - 51.1 %) 24.4 Monocytes % (1.7 - 9.3 %) 6.6 Eosinophils % (0 - 5 %) 3.1 Basophils % (0.0 - 2.0 %) 0.3 Absolute Granulocytes (1.4 - 6.5 /CUMM) 8.6 H Absolute Lymphocytes (1.2 - 3.4 /CUMM) 3.2 Absolute Monocytes (0.10 - 0.60 /CUMM) 0.9 H Absolute Eosinophils (0.0 - 0.7 /CUMM) 0.4 Absolute Basophils (0.0 - 0.2 /CUMM) 0 09/20 1808 Chemistry Lactic Acid Cancelled Urines Urine Color (YEL,AMB,STR) YEL Urine Clarity (CLEAR) CLEAR Urine pH (5.0 - 8.0) 6.0 Ur Specific [place] (1.001 - 1.035) 1.025 Urine Protein (NEG,<30 MG/DL) 30 H Urine Ketones (NEG) NEG Urine Nitrite (NEG) NEG Urine Bilirubin (NEG) NEG Urine Urobilinogen (0.1 - 1.0 EU/dl) 0.2 Ur Leukocyte Esterase (NEG) SMALL H Ur Microscopic SEDIMENT EXAMINED Urine RBC (0 - 5 /HPF) 1-3 Urine WBC (0 - 2 /HPF) 15-25 H Ur Epithelial Cells (NONE,FEW) MOD H Urine Crystals 1+ CA OX H Urine Bacteria (NEG/NONE) FEW H Hyaline Casts (0/LPF) RARE H Urine Hemoglobin (NEG) NEG Urine Glucose (N MG/DL) NEG 09/207 Chemistry Sodium (137 - 145 mmol/L) 143 Potassium (3.5 - 5.1 mmol/L) 4.2 Chloride (98 - 107 mmol/L) 104 Carbon Dioxide (22 - 30 mmol/L) 25 Anion Gap (5 - 16) 14 BUN (7 - 17 mg/dL) 20 H Creatinine (0.5 - 1.0 mg/dL) 0.9 Estimated GFR (>60 ml/min) > 60 BUN/Creatinine Ratio (7 - 25 %) 22.2 Glucose (65 - 99 mg/dL) 156 H Lactic Acid (0.7 - 2.1 mmol/L) 2.2 H Calcium (8.4 - 10.2 mg/dL) 10.2 Total Bilirubin (0.2 - 1.3 mg/dL) 0.2 AST (14 - 36 U/L) 25 ALT (9 - 52 U/L) 33 Alkaline Phosphatase (<127 U/L) 125 Total Protein (6.3 - 8.2 g/dL) 7.9 Albumin (3.5 - 5.0 g/dL) 4.2 Globulin (1.9 - 4.2 gm/dL) 3.7 Albumin/Globulin Ratio (1.1 - 2.2 %) 1.1 Lipase (23 - 300 U/L) 135 Hematology CBC w Diff NO MAN DIFF REQ WBC (4.8 - 10.8 /CUMM) 13.3 H RBC (4.20 - 5.40 /CUMM) 4.45 Hgb (12.0 - 16.0 G/DL) 13.1 Hct (37 - 47 %) 40.0 MCV (81.0 - 99.0 FL) 89.8 MCH (27.0 - 31.0 PG) 29.4 MCHC (33.0 - 37.0 G/DL) 32.7 L RDW (11.5 - 14.5 %) 13.1 Plt Count (130 - 400 /CUMM) 279 MPV (7.4 - 10.4 FL) 9.4 Gran % (42.2 - 75.2 %) 65.2 Lymphocytes % (20.5 - 51.1 %) 25.8 Monocytes % (1.7 - 9.3 %) 5.1 Eosinophils % (0 - 5 %) 3.5 Basophils % (0.0 - 2.0 %) 0.4 Absolute Granulocytes (1.4 - 6.5 /CUMM) 8.6 H Absolute Lymphocytes (1.2 - 3.4 /CUMM) 3.4 Absolute Monocytes (0.10 - 0.60 /CUMM) 0.7 H Absolute Eosinophils (0.0 - 0.7 /CUMM) 0.5 Absolute Basophils (0.0 - 0.2 /CUMM) 0.1 Imaging/Other Studies: 09/20/17: EKG- NSR @ 90, nl axis, nl intervals, NSST, PRWP. 09/21/17: CT ABD & PELVIS W IV CONTRAST- No evidence for acute abdominal or pelvic inflammatory or infectious processes. 2 mm nonobstructive right renal calculus. Sigmoid diverticulosis without evidence of diverticulitis. Normal AP & GB. Calcified fibroid. Bibasilar atelectasis. Assessment/Plan Assessment/Recommendations: 62 y/o female from [place] (speaks Bulgarian fairly well), HTN, DM, HLD, anxiety, depression, [place], asthma, eczema, smoker, nephrolithiasis (Ca carbonate ), past hx E. Coli urosepsis 04/2017, at which point, the patient had YOEL & numerous cystoscopies/ESWL for B/L renal stones & basket extraction of left UVJ stone, with left ureteral stent. She presented to the [facility] 09/20/17 at 5:32 p.m., reportedly with abdominal pain (*which the patient currently denied), diaphoresis, & chills a few days [employer] , without any fevers. At that time, she had a brown bowel movement, mixed with bright red blood x 2. This recurred again 1 day later. There was no spontaneous LGI bleeding or melena. she also had left flank pain on 09/20/17, similar to her renal colic. There was no CP or SOB. There was some mild dizziness. There was no LOC. She denied having any previous colonoscopy. There is no FHx GI Ca or IBD. She noted GERD, without hematemesis, odynophagia, or dysphagia. She denied any prior abdominal surgery. She remotely had sinus surgery. She had no diarrhea prior to admission. After admission, she had watery diarrhea,without any constipation, obstipation, change in stool caliber, or tenesmus. Her last antibiotics were given in 05/2017, for urologic reasons. She was last out of the [facility] in 2016, when she went to [place]. The patient is postmenopausal since age 59, with occasional night sweats. She denied any vaginal spotting or gross hematuria. She denied any sx UTI or URI. She denied any weight loss or jaundice. Her appetite was mildly decreased [employer]. There has been no recurrent rectal bleeding since admission. She had no rashes, aside from her eczema, nor acute arthralgias. She has a history of "hemorrhoids ". Upon arrival, BP 120/74, P 90, R 18, T 98, O2 sat RA 97%. She was treated with IV NS. *She had very stable labs on admission, but was probably hemoconcentrated , as her baseline HCT is in the mid 30's. She also had Fatigue & a mild headache, for which she took a few Advil daily for the past few days [employer]. She was also on Ecotrin. There were no documented prior blood transfusions in the [employer] computer. 09/20/17: CTAP with IV contrast-no acute GI pathology nor colitis, just sigmoid diverticulosis without diverticulitis, uterine fibroid, 2 mm nonobstructing right renal stone & bibasilar atelectasis. 09/20/17: Admission labs 1757-WBC 13.3 (65% gran/9 gran Ab), *H/H 13.1/40, MCV 89.8, RDW 13.1, PLT 279, glucose 156, BUN/Cr 20/0.9, GFR > 60, Na 143, K 4.2, HCO3 25, AG 14, lactate 2.2, lipase 135, Ca 10.2, albumin 4.2, globulin 2.7, TBil 0.2, alk phos 125, AST 25, ALT 33 (no coags). 09/20/17: U/A- clear, yellow, 1.025, 6.0, 15-25 WBC, rare hyaline casts, Ca ox crystals, few bact, mod epith, 30+ prot; micro- otherwise negative, small esterase, negative nitrite. 09/21/17: stool C. diff- pending. 09/21/17: 0642-WBC 13.1, H/H 11.4/34.1 (post IVF, *which is about baseline HCT), PLT 264, BUN/Cr 19/0.8, GFR > 60, Na 141, K 4.2, HCO3 20, AG 12, lactate 1.4, LDH 316. 09/20/17: EKG- NSR @ 90, nl axis, nl intervals, NSST, PRWP. 09/21/17: CT ABD & PELVIS W IV CONTRAST- No evidence for acute abdominal or pelvic inflammatory or infectious processes. 2 mm nonobstructive right renal calculus. Sigmoid diverticulosis without evidence of diverticulitis. Normal AP & GB. Calcified fibroid. Bibasilar atelectasis. *As of 09/21/17, the patient remained hemodynamically stable & afebrile, without any recurrent active rectal bleeding. She claimed she had a history of hemorrhoids, but refused a repeat digital exam. Admission CT did not show any acute GI pathology, such as colitis, just diverticulosis coli, a 2 mm nonobstructing right renal stone, and a calcified fibroid. *She had never had a baseline colonoscopy, despite her age. There was no pertinent family history regarding the GI tract. There was no spontaneous rectal bleeding, just some blood with bowel movements for a few days [employer]. Her HCT is currently at around baseline, in the mid 30's, after IVF. She was probably hemoconcentrated on admission, with a falsely elevated HCT 40 then. She is normocytic. There is a very good chance the above is hemorrhoidal in nature. Nevertheless, her colonic mucosa should be cleared, based on her age. A less likely possibility could be a self-limited diverticular bleed, rule out AVM, rule out neoplasm. Doubt colitis. There is nothing by history to suggest a rapid transit upper GI bleed. (Please note, the patient had no change in bowel habits until she developed some mild diarrhea, after admission). The risks & benefits of colonoscopy were discussed with the patient in the presence of her friends, and she wished to proceed. *SUGGEST: Clears po, then NPO after 2 a.m. on 09/22/17 for colonoscopy later that day. Start 1 gallon of GoLYTELY now, over 4-5 hours. Check CBCs Q12h. T&C 2u PRBC. Keep Hgb > 7 (no documented hx ASHD). 2 large-bore IVs. Check PT/PTT. O2 prn. DVT prophylaxis. If the patient develops active GI bleeding to the point of hemodynamic instability, please contact GI, move patient to the ICU, & get CTA abdomen. Await 09/21/17: C. difficile. Local care as needed, for presumed hemorrhoids. PPI for GERD. Antireflux measures. Follow-up with the medical team for other numerous issues, and for abnormal urinary sediment. Follow-up with urology as needed, regarding renal stones. The above findings and recommendations were discussed with Dr. Mccollum, the medical housestaff, & the pt' s RN today. Further GI recommendations to follow, depending on clinical course. Problem List: 1. Bloody stool 2. Hemorrhoids 3. Diverticulosis of colon Copies To: Lidya Maldonado APRN; Chun GASTON,Jamel; Toñito GASTON,Jorge Consult Acknowledgment - Thank you for your consult request.
[2017-09-21 20:06] LABS: PT 11.9 SEC (9.4-12.5); PTT 29 SEC (25-37)
[2017-09-21 21:13] LABS: ABSOLUTE BASOPHIL COUNT 0 /CUMM (0.0-0.2); ABSOLUTE EOSINOPHIL COUNT 0.2 /CUMM (0.0-0.7); ABSOLUTE GRANULOCYTE CT 10.2 /CUMM (1.4-6.5); ABSOLUTE LYMPH COUNT 2.7 /CUMM (1.2-3.4); ABSOLUTE MONOCYTE COUNT 0.8 /CUMM (0.10-0.60); BASOPHIL % 0.3 % (0.0-2.0); EOSINOPHIL % 1.5 % (0-5); GRANULOCYTE % 73.1 % (42.2-75.2); HEMATOCRIT 37.4 % (37-47); MEAN CORPUSCULAR HGB 29.3 PG (27.0-31.0); MEAN CORPUSCULAR HGB CONC 33.1 G/DL (33.0-37.0); MEAN CORPUSCULAR VOLUME 88.5 FL (81.0-99.0); MEAN PLATELET VOLUME 8.8 FL (7.4-10.4); PLATELET COUNT 313 /CUMM (130-400); RBC DISTRIBUTION WIDTH 13.5 % (11.5-14.5); RED BLOOD CELL CT 4.23 /CUMM (4.20-5.40)
[2017-09-21 22:32] VITALS: BP 143/90
[2017-09-22 06:23] VITALS: BP 130/76
--- NOTE | 2017-09-22 08:29 | PN- Housestaff ---
See Addendum Subjective Follow-up For: BLOODY STOOLS Subjective: No acute events overnight, afebrile. Patient is tolerating clear liquid diet, denies nausea/vomiting/blood stools/ fever/night sweats/ chills. Is expressing anxiety regarding colonoscopy today. is happy that the medication for her rash on hands and feet is working. Denies fever, chills, night sweats. Review of Systems Constitutional: Reports: see HPI. Objective Last 24 Hrs of Vital Signs/I&O Vital Signs Date Time Temp Pulse Resp B/P B/P Pulse O2 O2 Flow FiO2 Mean Ox Delivery Rate 09/22 06 97.8 82 130/76 97 Room Air 09/21 2232 98.4 70 20 143/90 96 Room Air 09/21 1441 97.3 65 18 116/69 96 Room Air Intake & Output 09/22 1600 09/22 0800 09/22 0000 Intake Total 460 4460 Output Total 600 1000 Balance -140 3460 Intake, IV 460 460 Intake, Oral 0 4000 Number 2 3 Bowel Movements Output, Urine 600 1000 Physical Exam General Appearance: Alert, Oriented X3, Cooperative Skin: well demarcated, flat, erythematous rash present on soles and palms HEENT: Atraumatic, EOMI Cardiovascular: Regular Rate, Normal S1, Normal S2 Lungs: Clear to Auscultation, Normal Air Movement Abdomen: Normal Bowel Sounds, Soft, No Tenderness, No Hepatospenomegaly Extremities: No Cyanosis, No Edema, Normal Pulses Current Medications: Current Medications Sig/Eric Start time Last Medication Dose Route Stop Time Status Admin Acetaminophen 1,000 MG Q6P PRN 09/21 0145 AC 09/21 IV 1405 Acetaminophen/ 1 TAB DAILY PRN 09/21 0030 09/21 Butalbital/Caffeine PO 0933 Albuterol Sulfate 2 PUF Q4-6 PRN PRN 09/21 0030 AC INH Atorvastatin Calcium 20 MG DAILY 09/21 0900 AC 09/22 PO 1133 Chlorhexidine 1 GM .STK-MED ONE 09/22 1024 DC Gluconate TOP 09/22 1025 Dextrose/Sodium 1,000 ML Q13H 09/21 2355 AC 09/22 Chloride IV 0208 Dextrose/Sodium 1,000 ML Q13H 09/20 2315 DC 09/21 Chloride IV 1207 Fluticasone 2 SPRAY DAILY PRN 09/21 0015 AC Propionate RONNY Glycerin/Mineral Oil 1 VIOLETA TID PRN 09/21 1145 AC TOP Insulin Human Regular 1 UNITS .STK-MED ONE 09/22 0036 DC IV 09/22 0037 Insulin Human Regular 0 Q6 09/21 2359 AC 09/22 SC 1223 Lisinopril 10 MG DAILY 09/21 0900 AC 09/22 PO 1133 Ondansetron HCl 4 MG Q6P PRN 09/21 1100 AC IV Polycarbophil 1,250 MG BID 09/22 1100 AC 09/22 PO 1223 Polyethylene Glycol 1 GAL ONCE ONE 09/21 1715 DC 09/21 PO 09/21 171 1855 Quetiapine Fumarate 25 MG DAILY 09/22 0900 AC PO Quetiapine Fumarate 100 MG QPM 09/21 0015 AC 09/21 PO 2116 Quetiapine Fumarate 25 MG BID 09/21 0014 DC PO Triamcinolone 1 VIOLETA BID 09/21 1135 AC 09/22 Acetonide TOP 1132 Venlafaxine HCl 75 MG BID 09/21 0014 AC 09/21 PO 2116 Last 24 Hrs of Lab/Vladislav Results Last 24 Hrs of Labs/Mics: Laboratory Tests 09/22/17 0606: CBC w Diff NO MAN DIFF REQ, RBC 4.03 L, MCV 89.2, MCH 29.4, MCHC 32.9 L, RDW 13.0, MPV 9.7, Gran % 72.7, Lymphocytes % 20.0 L, Monocytes % 5.9, Eosinophils % 1.1, Basophils % 0.3, Absolute Granulocytes 9.8 H, Absolute Lymphocytes 2.7, Absolute Monocytes 0.8 H, Absolute Eosinophils 0.1, Absolute Basophils 0 09/21/172056: CBC w Diff NO MAN DIFF REQ, RBC 4.23, MCV 88.5, MCH 29.3, MCHC 33.1, RDW 13.5, MPV 8.8, Gran % 73.1, Lymphocytes % 19.1 L, Monocytes % 6.0, Eosinophils % 1.5, Basophils % 0.3, Absolute Granulocytes 10.2 H, Absolute Lymphocytes 2.7, Absolute Monocytes 0.8 H, Absolute Eosinophils 0.2, Absolute Basophils 0 09/21/171809: PT 11.9, INR 1.09, APTT 29 Assessment/Plan Assessment: 62 yo Female with past medical history significant for Hypertension, DM, asthma, anxiety and nephrolithiasis presents to the ER with complaints of bleeding from the rectum and abdominal cramping. Patient has 2 episodes of passing stool with fresh blood on tuesday along with LLQ pain. Problem List: 1. Bloody Stools 2. Eczema 3. Diarrhea 4. Hyperlipidemia 5. Hypertension #Hemorrhoids: Abdo CT on 09/20/17 showed Sigmoid Diverticulosis Plan: - Colonoscopy today was positive for hemorrhoids and - patient tolerating regular diet - Recommended high fiber diet, increased intake of fruits and vegetables #Eczema: affecting both hands and feet Plan: -Triamcinolone 0.1% -Lubiderm Lotion -Benadryl #Diarrhea: Plan -C.diff negative #Hyperlipidemia plan -Atorvastatin 20mg Hypertension: plan -Lisinopril 10mg Plan to discharge patient home today, colonscoy was positive for hemorrhoids, some biopsies were taken for which patient will f/u with Dr. Mendez within 2 weeks. Discharged patient with Polycarbophil, Triamcinolone 0.1% ointment, Lubiderm lotion. Problem List: 1. Hemorrhoids Pain Ratin Pain Location: n/a Pain Goal: Remain pain free Pain Plan: tylenol Tomorrow's Labs & Rationales: n/a
[2017-09-22 08:35] LABS: ABSOLUTE BASOPHIL COUNT 0 /CUMM (0.0-0.2); ABSOLUTE EOSINOPHIL COUNT 0.1 /CUMM (0.0-0.7); ABSOLUTE GRANULOCYTE CT 9.8 /CUMM (1.4-6.5); ABSOLUTE LYMPH COUNT 2.7 /CUMM (1.2-3.4); ABSOLUTE MONOCYTE COUNT 0.8 /CUMM (0.10-0.60); BASOPHIL % 0.3 % (0.0-2.0); EOSINOPHIL % 1.1 % (0-5); GRANULOCYTE % 72.7 % (42.2-75.2); MEAN CORPUSCULAR HGB 29.4 PG (27.0-31.0); MEAN CORPUSCULAR HGB CONC 32.9 G/DL (33.0-37.0); MEAN CORPUSCULAR VOLUME 89.2 FL (81.0-99.0); MEAN PLATELET VOLUME 9.7 FL (7.4-10.4); PLATELET COUNT 299 /CUMM (130-400); RED BLOOD CELL CT 4.03 /CUMM (4.20-5.40); WHITE BLOOD CELL COUNT 13.4 /CUMM (4.8-10.8)
--- NOTE | 2017-09-22 10:34 | Proc Note Colonoscopy ---
Colonoscopy Procedure Medical History: unchanged Mental Status: alert/oriented Heart/Lung Eval Prior to Sedation: within normal limits Candidate for Sedation? Yes Date of Last Colonoscopy: Never Procedure Date: 09/22/17 Procedure Type: colonoscopy w/biopsy Checkroom Attendant: MONIKA OWENS MD ASA Classification: III Indications: INDX: (*Please refer to my 09/21/17 inpatient GI consult). 62-year-old female, no previous colonoscopy, nor any FHx of colon CA, admitted to [facility] 09/20/17 with scant rectal bleeding after a brown bowel movement. The patient was hemodynamically stable, with a very stable HCT 40, on admission (* hemoconcentrated, baseline HCT mid 30's). 09/20/17: CTAP with IV contrast-no acute GI pathology nor colitis, just sigmoid diverticulosis without diverticulitis, uterine fibroid, 2 mm nonobstructing right renal stone & bibasilar atelectasis. 09/21/17: 2057-WBC 14.0 (73% gran/10 gran Ab), H/H 12.4/37.4, MCV 88.5, RDW 13.5 , PLT 313 09/21/17: PT 11.9, INR 1.09, PTT 29 09/22/17: 0606-WBC 13.4, H/H 11.9/36, PLT 299 *There is a very good chance the above is hemorrhoidal in nature. Nevertheless, her colonic mucosa should be cleared, based on her age. A less likely possibility could be a self-limited diverticular bleed, rule out AVM, rule out neoplasm. Doubt colitis. There is nothing by history to suggest a rapid transit upper GI bleed. (Please note, the patient had no change in bowel habits until she developed some mild diarrhea, after admission). *No further rectal bleeding was noted since admission. 09/21/17: C. diff- negative, per medical team. Instrument (Colonoscope): single channel Meds Received: MAC Patient's Tolerance: good Complications: none Extent Reached: terminal ileum Prep: good Procedure: Baseline colonoscopy to the terminal ileum with biopsies, was performed with the Olympus high-definition videocolonoscope, after obtaining informed consent from the patient, with the director of cardiac cath lab and pulse oximeter, after 1 gallon of GoLYTELY, with the assistance of Dr. Lockwood, of [facility]. The prep was good. The patient was in the left lateral decubitus position throughout the procedure. Direct views of the rectum failed to reveal any external hemorrhoids, fissures, or perianal disease. Digital rectal exam was unremarkable, without any masses. Sphincter tone was normal. Retroflexion in the rectum failed to reveal any gross proctitis, rectal ulcers, or rectal lesions. There were mild internal hemorrhoids, without any active bleeding, & some hypertrophied anal papillae. The colonic mucosa was carefully inspected, both upon insertion and upon withdrawal of the colonoscope. Withdrawal time was certainly adequate. The colonic mucosa was carefully inspected, both upon insertion and upon withdrawal of the colonoscope. There were moderate left- sided diverticula, from the sigmoid to the transverse colon. There were no strictures. I do not appreciate any right-sided diverticula. The cecum, base of the appendix, and ileocecal valve were all identified. The last 5 cm of the terminal more entered, and appeared normal. Confirmatory photographs were obtained. The patient's colonic mucosa was somewhat sensitive to suction artifact. There were numerous, incidental, diminutive 2 mm sessile rectosigmoid polyps, all equivocal by NBI, all completely removed via cold biopsies: ( Specimen A- 9 x 2 mm sigmoid polyps, from 20-30 cm. Specimen B- 10 x 2 mm rectal polyps, from 5-10 cm). The colonic mucosa otherwise appeared intact and within normal limits to the terminal ileum, without any additional polyps, lesions, gross colitis, ileitis, or angiodysplasias. *Documenting photographs were obtained, and placed inside the patient's chart. No active lower GI bleeding was seen, although the patient was told to expect some scant rectal bleeding, after the low-lying biopsies. The patient tolerated the procedure well. Impression: 1. Moderate left-sided diverticula, from the sigmoid to the transverse colon. 2. Mild internal hemorrhoids, without any active bleeding, & hypertrophied anal papillae. 3. Numerous, incidental, diminutive 2 mm sessile rectosigmoid polyps, all equivocal by NBI, all completely removed via cold biopsies: (Specimen A- 9 x 2 mm sigmoid polyps, from 20-30 cm. Specimen B- 10 x 2 mm rectal polyps, from 5-10 cm). *The above diminutive polyps were incidental in nature. Clinically, the patient probably had hemorrhoidal bleeding. She did not appear to be having a diverticular bleed. Her HCT was very stable. Recommendations: Await pathology of the incidental, diminutive, 2 mm rectosigmoid polyps (19 in total). The patient was given my office number and advised to call the office within 2 weeks for the pathology results. Local care as needed, regarding internal hemorrhoids. Start high-fiber diet, plus FiberCon 2 tabs daily. There is absolutely no need for the patient to remain in the hospital from a GI perspective. The frequency of follow-up surveillance colonoscopy will be dependent on the pathology results of this baseline study, keeping in mind the lack of any FHx colon Ca. Assuming the diminuitive rectosigmoid polyps are benign, most likely, in 3-5 years (i.e.- 09/2020 vs. 09/2022) vs. 10 years (i.e.- 09/2027). The above findings and recommendations were discussed with the patient and with Dr. Mccollum, postoperatively. ADDENDUM: 09/23/2017- A. 9 x 2 MM SESSILE SIGMOID POLYPS FROM 20-30 CM, ALL COMPLETELY REMOVED VIA COLD BIOPSIES: NUMEROUS PORTIONS OF COLONIC MUCOSA, MULTIPLE PORTIONS SHOWING MILD HYPERPLASTIC EPITHELIAL CHANGE, AND SEVERAL PORTIONS SHOWING LYMPHOGLANDULAR COMPLEXES. NEGATIVE FOR EVIDENCE OF MALIGNANCY. B. 10 x 2 MM SESSILE RECTAL POLYPS, FROM 5-10 CM, ALL COMPLETELY REMOVED VIA COLD BIOPSIES: NUMEROUS PORTIONS OF COLONIC MUCOSA, *ONE PORTION SHOWING FEATURES COMPATIBLE WITH SESSILE SERRATED POLYP/ADENOMA, MULTIPLE PORTIONS SHOWING MILD HYPERPLASTIC EPITHELIAL CHANGE, AND MULTIPLE PORTIONS SHOWING SMALL LYMPHOGLANDULAR COMPLEXES. NEGATIVE FOR EVIDENCE OF MALIGNANCY. Dictated by: Kely GATSON,Khurram Ravi The pt was D/C to home postop on 09/22/17, with what was felt to be a scant hemorrhoidal bleed. 9 x 2 mm sigmoid polyps- benign hyperplastic & LGC. 10 x 2 mm rectal polyps- benign hyperplastic & LGC & *1 benign SSP/adenoma. I called the pt 09/23/17 at 7:19 p.m., at [phone], & left her a message, regarding the benign diminuitive polyps. Based on the pathology found on this baseline colonoscopy, as all of the diminuitive 2 mm rectosigmoid polyps were beign hyperplastic & LGC, *except for 1 diminuitve benign SSP/adenoma, also keeping in mind the lack of any FHx colon Ca, I advised a repeat colonoscopy in 5 years ( i.e.- 09/2022). Local care as needed, regarding internal hemorrhoids. Start high-fiber diet, plus FiberCon 2 tabs daily. Followup Colonscopy Screen In: pending biopsy result(s) CC: Lidya Maldonado APRN; Chun GASTON,Jamel; Jorge Sibley MD
[2017-09-22] MEDS ORDERED: FIBER625 MG PO ×2 (10:45→12:21)
--- NOTE | 2017-09-22 11:35 | Patient Discharge Instructions ---
Discharge Instructions General Discharge Information You were seen/treated for: Bloody Stools You had these procedures: no procedure performed Watch for these problems: Fever, Chest Pain, Shortness of breath, lizbeth blood in stool Special Instructions: Follow up with Dr. Mendez regarding biopsy results. Take stool softners and fiber hemorrhoids. Diet Continue normal diet: Yes Recommended Diet: High Fiber Diet Activity Full Activity/No Limits: Yes Activity Self Limited: No Acute Coronary Syndrome Inclusion Criteria At DC or during hospital stay patient has or had the following: ACS DIAGNOSIS No Discharge Core Measures Meds if any: Prescribed or Continued at Discharge Meds if any: NOT Prescribed or Continued at Discharge Congestive Heart Failure Inclusion Criteria At DC or during hospital stay patient has or had the following: CHF DIAGNOSIS No Discharge Core Measures Meds if any: Prescribed or Continued at Discharge Meds if any: NOT Prescribed or Continued at Discharge Cerebrovascular accident Inclusion Criteria At DC or during hospital stay patient has or had the following: CVA/TIA Diagnosis No Discharge Core Measures Meds if any: Prescribed or Continued at Discharge Meds if any: NOT Prescribed or Continued at Discharge Venous thromboembolism Inclusion Criteria VTE Diagnosis No VTE Type NONE VTE Confirmed by (Test) NONE Discharge Core Measures - Per Current guidelines, there needs to be overlap - treatment for the first 5 days of Warfarin therapy. - If discharged on Warfarin prior to 5 days of - overlap therapy, the patient will need to be - assessed for post discharge needs including - *Post discharge parental anticoagulation - *Warfarin and/or parental anticoagulation education - *Follow up date to check INR post discharge At least 5 days overlap therapy as Inpatient Yes Meds if any: Prescribed or Continued at Discharge Note: Overlap Therapy is Warfarin and Anticoagulant Meds if any: NOT Prescribed or Continued at Discharge
[2017-09-22] MEDS ORDERED: LUBRIDERM DAIL177 ML TOP (11:51)
[2017-09-22] MEDS ORDERED: TRIAMCINOLONE A15 G3 TOP (11:51)
[2017-09-22 14:01] VITALS: BP 131/73
--- NOTE | 2017-09-22 14:33 | Discharge Summary ---
Visit Information Visit Dates Admission Date: 09/20/17 Discharge Date: 09/22/17 Hospital Course Course Attending Physician: Jamel Mccollum MD Primary Care Physician: Lidya Maldonado APRN Consulting Request: Consulting Specialty: Gastroenterology Allergies: Coded Allergies: Sulfa (Sulfonamide Antibiotics) (Mild, ITCHING 05/15/17) codeine (NIGHTMARES 05/13/17) oxycodone (VOMITING 05/13/17) Discharge Instructions Medications at Discharge Discharge Medications: Stop taking the following medications: Ciprofloxacin HCl (Cipro) 500 MG TABLET ORAL TWICE DAILY Qty = 14 Continue taking these medications: Aspirin (Ecotrin*) 81 MG TABLET.DR 1 Tablet ORAL DAILY Qty = 30 Comments: NOT GIVEN IN THE HOSPITAL Albuterol Sulfate (Ventolin Hfa) 18 GM HFA.AER.AD 2 Puff Inhale through mouth EVERY 4-6 HOURS NEEDED as needed for SOB Qty = 1 Comments: NOT GIVEN IN HOSPITAL Atorvastatin Calcium (Atorvastatin Calcium) 20 MG TABLET 1 Tablet ORAL DAILY Qty = 90 Comments: Last Taken: 09/22/17 Time: 11:33 Butalb/Acetaminophen/Caffeine (Tmnhbf-Lahntdhr-Aqvg 50-300-40) 50 MG-300 MG-40 MG CAPSULE 1 Tablet ORAL Q6H as needed for VILLAREAL Qty = 28 Comments: NOT GIVEN IN THE HOSPITAL Hydroxyzine HCl (hydrOXYzine HCl) 50 MG TABLET 0.5 Tablet ORAL TWICE DAILY Qty = 30 Comments: NOT GIVEN IN HOSPITAL Quetiapine Fumarate (Quetiapine Fumarate) 100 MG TABLET 1 Tablet ORAL TAKE AT BEDTIME Qty = 30 Comments: Last Taken: 09/21/17 Time: 915 PM 25 MG AM, 100 MG PM Cholecalciferol (Vitamin D3) (Vitamin D) 2,000 UNIT TABLET 1 Tablet ORAL DAILY Qty = 90 Comments: NOT GIVEN IN HOSPITAL Lisinopril (Lisinopril) 10 MG TABLET 1 Tablet ORAL DAILY Qty = 90 Comments: Last Taken: 09/22/17 Time: 1130 AM Pantoprazole Sodium (Pantoprazole Sodium) 40 MG TABLET.DR 1 Tablet ORAL DAILY Qty = 90 Comments: NOT GIVEN Metformin HCl (Metformin HCl) 500 MG TABLET 0.5 Tablet ORAL TWICE DAILY Qty = 90 Comments: NOT GIVEN Ondansetron (Zofran Odt) 4 MG TAB.RAPDIS 1 Tablet SUBLINGUAL THREE TIMES DAILY Qty = 10 Comments: NOT GIVEN Fluticasone Propionate (Fluticasone Propionate) 50 MCG/ACTUATION SPRAY.SUSP 2 [place] Both sides of nose as needed for ALLERGIES Comments: NOT GIVEN IN HOSPITAL Quetiapine Fumarate (Quetiapine Fumarate) 25 MG TABLET 1 Tablet ORAL TWICE DAILY Comments: Last Taken: 09/21/17 Time: 915 PM 25 MG AM, 100 MG PM Venlafaxine HCl (Venlafaxine HCl) 75 MG TABLET 1 Tablet ORAL TWICE DAILY Comments: Last Taken: 09/21/17 Time: 915 PM Tramadol HCl (Tramadol HCl) 50 MG TABLET 1 Tablet ORAL 2 x Daily as needed as needed for PAIN Qty = 10 Comments: NOT GIVEN IN HOSPITAL Start taking the following new medications: Polycarbophil (Fiber) 625 MG TABLET 1,250 Milligram ORAL TWICE DAILY Qty = 120 No Refills Instructions: . Comments: Last Taken: 09/22/17 Time: 12:23 Triamcinolone Acetonide (Triamcinolone Acetonide) 0.1 % OINT...G. 1 Application On the skin TWICE DAILY Qty = 1 No Refills Instructions: APPLY TO AFFECTED AREA Comments: Last Taken: 09/22/17 Time: 1130 AM Emollient Combination No.92 (Lubriderm Daily Moisture) 177 ML LOTION 1 Application On the skin THREE TIMES DAILY as needed for DRY SKIN Qty = 1 No Refills Comments: NOT GIVEN IN HOSPITAL
== END 2017-09-22 14:43 | DRG 246 ==
LOC: ERH 17:32 → 2NB 21:22 → ERHI 21:22 → ENRESERV 09-21 → 2NB 09-21 01:32 → ENPENDDIS 09-22 10:48 → 2NB 09-22 14:43
PROVIDERS: Hospitalist; Internal Medicine; Physical Medicine & Rehabilitation; Physician Assistant
PROC: 0DBN8ZX Excision of Sigmoid Colon, Via Natural or Artificial Opening Endoscopic, Diagnostic (ICD-10-PCS; principal; 2017-09-22)
PROC: 0DBP8ZX Excision of Rectum, Via Natural or Artificial Opening Endoscopic, Diagnostic (ICD-10-PCS; principal; 2017-09-22)
DX: K55.059 Acute (reversible) ischemia of intestine, part and extent unspecified (principal); K92.1 Melena; E11.9 Type 2 diabetes mellitus without complications; Z79.84 Long term (current) use of oral hypoglycemic drugs; J45.909 Unspecified asthma, uncomplicated; I10 Essential (primary) hypertension; L30.9 Dermatitis, unspecified; F41.9 Anxiety disorder, unspecified; Z88.5 Allergy status to narcotic agent; Z88.2 Allergy status to sulfonamides; F32.9 Major depressive disorder, single episode, unspecified; H91.90 Unspecified hearing loss, unspecified ear; F17.210 Nicotine dependence, cigarettes, uncomplicated; N20.0 Calculus of kidney; Z79.51 Long term (current) use of inhaled steroids; D72.819 Decreased white blood cell count, unspecified; Z80.0 Family history of malignant neoplasm of digestive organs
CPT/HCPCS: 2NBSP; ERO; 36415; 36592; 74177; 81001; 82436; 88305; 93005; 93010; 96360; J0131; J1200; J1815; J2405; J3101; J3490; J7042